=== PATIENT | male | born 1950 | race Caucasian/White ===

== ENCOUNTER 2017-11-26 08:23 | Outpatient (RCR) | payer MEDICARE, SELFPAY ==
[2017-11-26 08:45] VITALS: BP 145/80; PULSE 75; RESP 18; TEMP 36.9; BMI 32.5
--- NOTE | 2017-11-26 10:00 | PCM.WC.HP ---
(1) Ulcer of right lower extremity with fat layer exposed Status: Chronic Current Visit: Yes Code(s): L97.912 - Non-pressure chronic ulcer of unspecified part of right lower leg with fat layer exposed (2) Ulcer of left lower extremity with fat layer exposed Status: Chronic Current Visit: Yes Code(s): L97.922 - Non-pressure chronic ulcer of unspecified part of left lower leg with fat layer exposed (3) Venous insufficiency Status: Chronic Current Visit: Yes Code(s): I87.2 - Venous insufficiency (chronic) (peripheral) (4) Peripheral vascular disease Status: Chronic Current Visit: Yes Code(s): I73.9 - Peripheral vascular disease, unspecified (5) Lower extremity edema Status: Chronic Current Visit: Yes Code(s): R60.0 - Localized edema (6) Malnutrition Status: Suspected Current Visit: Yes Code(s): E46 - Unspecified protein-calorie malnutrition (7) Type 2 diabetes mellitus with diabetic polyneuropathy Status: Chronic Current Visit: Yes Code(s): E11.42 - Type 2 diabetes mellitus with diabetic polyneuropathy History of Present Illness Date of Service: 11/26/17 Chief Complaint: This 67-year-old male presents the wound care center for care of ulcers to both legs with an onset of over 3 years ago. He is in a skilled facility/psychiatric facility and is with an aide today. He sleeps in a chair. Previous cares include cream application wraps and bandages. He denies odor or redness. He is unable to care for the wounds on his own. He denies claudication. He does have some rest alterations in sensation. He denies recent trauma or injuries. He denies fever, chill, nausea. The wounds continue to weep with clear and yellowish drainage. 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 Medications: Amlodipine, aspirin, Ativan, Benadryl as needed, Blistex, bumetanide, disannex, Dilantin, Dulcolax, Glucerna, Imodium, Lantus pale, Lipitor, lisinopril, metoprolol, Mylanta, Risperdal, Synthroid, Tubersol, Tylenol needed, vitamin B12, metolazone. staff member who often provides care: Zora Aguilar at [facility] Smoking Status: Current every day smoker Review of Systems Constitutional: Denies: Chills, Fever Cardiovascular: Denies: Claudication Gastrointestinal: Denies: Nausea, Vomiting Musculoskeletal: Denies: Foot Pain, Leg Pain Skin: Reports: Rash, Wounds Neurological: Reports: Balance problems, Numbness - Physical Exam Vital Signs Temp Pulse Resp BP 98.4 F 75 18 145/80 H 11/26/17 08:45 11/26/17 08:45 11/26/17 08:45 11/26/17 08:45 General: Alert, Cooperative HEENT: Atraumatic Extremities: No cyanosis, Capillary Refill Less than 3 Seconds, No Calf Tenderness - Negative Charlene and Sloan bilateral, Diminished Peripheral Pulses, Edema Skin: Ulcer/ Wound - No purulence, no erythema, streaking, no odor, no necrosis, no eschar bilateral lower extremity. The wounds are fibrous with some hemorrhagic and granular. No crepitus on palpation, - - Skin is atrophic and hairless with some hemosiderin deposits Wound Measurements and Assessment ROSANA - Nurse 1 - General Ulcer Measurement Start: 11/26/17 08:42 Freq: Status: Active Protocol: Activity Type Activity Date Activity User E-Sign Co-Sign Detail Recorded Client Recorded Date Recorded By Document 11/26/17 08:45 PRESTON [id number] 11/26/17 08:58 PRESTON 11/26/17 08:45 Wound Center Nurse 1 [Ulcer Assessment Protocol: ROSANA.WD.LOC] 2-left leg cluster -Combined with other wound No -Current Size (cm) - Length 28.5 -Current Size (cm) - Width 29.0 -Current Size (cm) - Depth 0.1 -Total Square Cm 826.50 -Photo Taken Yes -Epithelialization None Present -Tunneling No -Undermining/Tunneling No -Circular Undermining No -Exudate Amt Medium (34-66%) -Exudate Type Serosanguineous -Wound Margin Flat & Intact -Granulation Amt None Present (0 %) -Slough/Fibrin Yes -Necrosis Amt Large (67-100%) -Necrotic Tissue Type Adherent Slough -Structure Exposed N/A -Texture (Rubia-wound Skin Appearance) Assessed Localized Edema -Moisture (Rubia-wound Skin Appearance Assessed ) Dry/Scaly -Color (Rubia-wound Skin Appearance) Assessed Hemosiderin Staining -Temperature (Rubia-wound Skin No Abnormality Appearance) (Pt Warm) -Tenderness on Palpation (Rubia-wound No Skin Appearance) -Ulcer Cleansing Wound Cleanser -Foul Odor after Cleansing No -Anesthetic Used 4% Lidocaine Solution 1-right leg cluster -Combined with other wound No -Current Size (cm) - Length 26.0 -Current Size (cm) - Width 37.0 -Current Size (cm) - Depth 0.1 -Total Square Cm 962.00 -Photo Taken Yes -Epithelialization None Present -Tunneling No -Undermining/Tunneling No -Circular Undermining No -Exudate Amt Medium (34-66%) -Exudate Type Serosanguineous -Wound Margin Flat & Intact -Granulation Amt None Present (0 %) -Slough/Fibrin Yes -Necrosis Amt Large (67-100%) -Necrotic Tissue Type Adherent Slough -Structure Exposed N/A -Texture (Rubia-wound Skin Appearance) Assessed Localized Edema -Moisture (Rubia-wound Skin Appearance Assessed ) Dry/Scaly -Color (Rubia-wound Skin Appearance) Assessed Hemosiderin Staining -Temperature (Rubia-wound Skin No Abnormality Appearance) (Pt Warm) -Tenderness on Palpation (Rubia-wound No Skin Appearance) -Ulcer Cleansing Wound Cleanser -Foul Odor after Cleansing No -Anesthetic Used 4% Lidocaine Solution [Edema Assessment] -Lower Limb Edema Present Yes -Right Calf (cm) 40.5 -Right Ankle (cm) 24.5 -Left Calf (cm) 39.2 -Left Ankle (cm) 25.2 WC - Nurse 2 - General Ulcer CM Notes Start: 11/26/17 08:42 Freq: Status: Active Protocol: Activity Type Activity Date Activity User E-Sign Co-Sign Detail Recorded Client Recorded Date Recorded By Document 11/26/17 09:14 [id number] 11/26/17 09:38 11/26/17 09:14 Wound Center Nurse 2 [Procedure/Treatment] 2-left leg cluster -Time 09:14 -Correct Patient Yes -Correct Side, Site, Position Yes -Correct Procedure Yes -Procedure Performed Yes -Type of Procedure Debridement -Clinical Debridement Subcutaneous -Post Debridement Size (cm) - Length 28.6 -Post Debridement Size (cm) - Width 29.1 -Post Debridement Size (cm) - Depth 0.1 -Total Square Cm 832.26 -Wound/Ulcer Outcome Not Healed -Ulcer Cleansing Rinsed/ Irrigated with Saline -Foul Odor after Cleansing No -Bioengineered Tissue No -Topical Lidocaine (%) 4 -Bleeding Controlled with Pressure -Treatment Response Procedure Tolerated Well 1-right leg cluster -Time 09:14 -Correct Patient Yes -Correct Side, Site, Position Yes -Correct Procedure Yes -Procedure Performed Yes -Type of Procedure Debridement -Clinical Debridement Subcutaneous -Post Debridement Size (cm) - Length 26.1 -Post Debridement Size (cm) - Width 37.1 -Post Debridement Size (cm) - Depth 0.1 -Total Square Cm 968.31 -Wound/Ulcer Outcome Not Healed -Ulcer Cleansing Rinsed/ Irrigated with Saline -Foul Odor after Cleansing No -Bioengineered Tissue No -Topical Lidocaine (%) 4 -Bleeding Controlled with Pressure -Treatment Response Procedure Tolerated Well [See Physician Procedure note for Specifics] Pain Scale: 0-10 Numeric [Pain] -Is Patient Pain Free? Yes Musculoskeletal: No Tenderness to Palpation of Joints or Extremities, Muscle Wasting, - - Compartments remain soft bilateral lower extremities. 5 out of 5 ankle muscle strength in all directions and active range of motion digits bilateral Neurological: - - Epicritic sensation is intact to light touch and 2 monocytes with a 10 g Odom Chauncey monofilament Psych/Mental Status: Normal Affect, Appropriate Debridement Note Post-Debridement Measurements/Treatment WC - Nurse 2 - General Ulcer CM Notes Start: 11/26/17 08:42 Freq: Status: Active Protocol: Activity Type Activity Date Activity User E-Sign Co-Sign Detail Recorded Client Recorded Date Recorded By Document 11/26/17 09:14 [id number] 11/26/17 09:38 11/26/17 09:14 Wound Center Nurse 2 2-left leg cluster -Time 09:14 -Correct Patient Yes -Correct Side, Site, Position Yes -Correct Procedure Yes -Procedure Performed Yes -Type of Procedure Debridement -Clinical Debridement Subcutaneous -Post Debridement Size (cm) - Length 28.6 -Post Debridement Size (cm) - Width 29.1 -Post Debridement Size (cm) - Depth 0.1 -Total Square Cm 832.26 -Wound/Ulcer Outcome Not Healed -Ulcer Cleansing Rinsed/ Irrigated with Saline -Foul Odor after Cleansing No -Bioengineered Tissue No -Topical Lidocaine (%) 4 -Bleeding Controlled with Pressure -Treatment Response Procedure Tolerated Well 1-right leg cluster -Time 09:14 -Correct Patient Yes -Correct Side, Site, Position Yes -Correct Procedure Yes -Procedure Performed Yes -Type of Procedure Debridement -Clinical Debridement Subcutaneous -Post Debridement Size (cm) - Length 26.1 -Post Debridement Size (cm) - Width 37.1 -Post Debridement Size (cm) - Depth 0.1 -Total Square Cm 968.31 -Wound/Ulcer Outcome Not Healed -Ulcer Cleansing Rinsed/ Irrigated with Saline -Foul Odor after Cleansing No -Bioengineered Tissue No -Topical Lidocaine (%) 4 -Bleeding Controlled with Pressure -Treatment Response Procedure Tolerated Well Pain Scale: 0-10 Numeric Is Patient Pain Free? Yes Wound debrided: leg Laterality: Right Wound Grade/Stage: grade 1 Type of Debridement: Excisional debridement Anesthesia Used: 4% Lidocaine Solution Depth: in the subcutaneous layer Percentage of wound debrided: 100 Instrument Used: #15 blade Tissue Removed: Fibrous, devitalized subcutaneous, biofilm, slough Severity: Limited To Skin Breakdown Amount of bleeding with debridement: Mild Bleeding Controlled with: Pressure Patient tolerated procedure well - Additional Wound Wound debrided: leg Laterality: Left Wound Grade/Stage: Grade 1 Type of Debridement: Excisional debridement Anesthesia Used: 4% Lidocaine Solution Depth: in the subcutaneous layer Percentage of wound debrided: 100 Instrument Used: #15 blade Tissue Removed: Fibrous, devitalized subcutaneous, biofilm, slough Severity: Limited To Skin Breakdown Amount of bleeding with debridement: Mild Bleeding Controlled with: Pressure Patient tolerated procedure: Patient tolerated procedure well Assessment/Plan Active Problems Ulcer of right lower extremity with fat layer exposed (Chronic) Ulcer of left lower extremity with fat layer exposed (Chronic) Venous insufficiency (Chronic) Peripheral vascular disease (Chronic) Lower extremity edema (Chronic) Type 2 diabetes mellitus with diabetic polyneuropathy (Chronic) Assessment: Bilateral leg ulcers. Lower extremity edema bilateral. Rule out venous insufficiency. Peripheral vascular disease rule out. Malnutrition suspected. Poor hygiene Plan: I reviewed and discussed his case and reviewed his diagnostic data which there is lacking. Debridement was performed as noted in the clinical nursing panel. To change dressing daily with hydrogel and Adaptic and Tubigrip for compression. Venous Doppler with reflux exam and noninvasive arterial studies were ordered to assess for venous and arterial capabilities. Additional compression will be considered pending these results. Lab tests including hemoglobin A1c, CBC, CMP were ordered and results are pending. He was reassured there is no local signs of infection. To moisturize adjacent dry skin with Eucerin or Lac-Hydrin. To elevate legs at rest and to avoid idle sitting or standing. To take nutritional supplementation to optimize healing; a prescription for Gustavo was provided. To control glucose levels to optimize healing. I explained the necessary factors needed for wound healing. I answered all of his questions. To return to clinic in 1 week or call sooner if problems.
--- NOTE | 2017-11-26 10:03 | HP.PCM_ITS ---
(1) Ulcer of right lower extremity with fat layer exposed Status: Chronic Current Visit: Yes Code(s): L97.912 - Non-pressure chronic ulcer of unspecified part of right lower leg with fat layer exposed (2) Ulcer of left lower extremity with fat layer exposed Status: Chronic Current Visit: Yes Code(s): L97.922 - Non-pressure chronic ulcer of unspecified part of left lower leg with fat layer exposed (3) Venous insufficiency Status: Chronic Current Visit: Yes Code(s): I87.2 - Venous insufficiency ( chronic) (peripheral) (4) Peripheral vascular disease Status: Chronic Current Visit: Yes Code(s): I73.9 - Peripheral vascular disease, unspecified (5) Lower extremity edema Status: Chronic Current Visit: Yes Code(s): R60.0 - Localized edema (6) Malnutrition Status: Suspected Current Visit: Yes Code(s): E46 - Unspecified protein- calorie malnutrition (7) Type 2 diabetes mellitus with diabetic polyneuropathy Status: Chronic Current Visit: Yes Code(s): E11.42 - Type 2 diabetes mellitus with diabetic polyneuropathy History of Present Illness Date of Service: 11/26/17 Chief Complaint: This 67-year-old male presents the wound care center for care of ulcers to both legs with an onset of over 3 years ago. He is in a skilled facility/psychiatric facility and is with an aide today. He sleeps in a chair. Previous cares include cream application wraps and bandages. He denies odor or redness. He is unable to care for the wounds on his own. He denies claudication. He does have some rest alterations in sensation. He denies recent trauma or injuries. He denies fever, chill, nausea. The wounds continue to weep with clear and yellowish drainage. 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 Medications: Amlodipine, aspirin, Ativan, Benadryl as needed , Blistex, bumetanide, disannex, Dilantin, Dulcolax, Glucerna, Imodium, Lantus pale, Lipitor, lisinopril, metoprolol, Mylanta, Risperdal, Synthroid, Tubersol, Tylenol needed, vitamin B12, metolazone. staff member who often provides care: Zora Aguilar at [facility] Smoking Status: Current every day smoker Review of Systems Constitutional: Denies: Chills, Fever Cardiovascular: Denies: Claudication Gastrointestinal: Denies: Nausea, Vomiting Musculoskeletal: Denies: Foot Pain, Leg Pain Skin: Reports: Rash, Wounds Neurological: Reports: Balance problems, Numbness - Physical Exam Vital Signs Temp Pulse Resp BP 98.4 F 75 18 145/80 H 11/26/17 08:45 11/26/17 08:45 11/26/17 08:45 11/26/17 08:45 General: Alert, Cooperative HEENT: Atraumatic Extremities: No cyanosis, Capillary Refill Less than 3 Seconds, No Calf Tenderness - Negative Charlene and Sloan bilateral, Diminished Peripheral Pulses, Edema Skin: Ulcer/ Wound - No purulence, no erythema, streaking, no odor, no necrosis , no eschar bilateral lower extremity. The wounds are fibrous with some hemorrhagic and granular. No crepitus on palpation, - - Skin is atrophic and hairless with some hemosiderin deposits Wound Measurements and Assessment ROSANA - Nurse 1 - General Ulcer Measurement Start: 11/26/17 08:42 Freq: Status: Active Protocol: Activity Type Activity Date Activity User E-Sign Co-Sign Detail Recorded Client Recorded Date Recorded By Document 11/26/17 08:45 PRESTON [id number] 11/26/17 08:58 PRESTON 11/26/17 08:45 Wound Center Nurse 1 [Ulcer Assessment Protocol: ROSANA.WD.LOC] 2-left leg cluster -Combined with other wound No -Current Size (cm) - Length 28.5 -Current Size (cm) - Width 29.0 -Current Size (cm) - Depth 0.1 -Total Square Cm 826.50 -Photo Taken Yes -Epithelialization None Present -Tunneling No -Undermining/Tunneling No -Circular Undermining No -Exudate Amt Medium (34-66%) -Exudate Type Serosanguineous -Wound Margin Flat & Intact -Granulation Amt None Present (0 %) -Slough/Fibrin Yes -Necrosis Amt Large (67-100%) -Necrotic Tissue Type Adherent Slough -Structure Exposed N/A -Texture (Rubia-wound Skin Appearance) Assessed Localized Edema -Moisture (Rubia-wound Skin Appearance Assessed ) Dry/Scaly -Color (Rubia-wound Skin Appearance) Assessed Hemosiderin Staining -Temperature (Rubia-wound Skin No Abnormality Appearance) (Pt Warm) -Tenderness on Palpation (Rubia-wound No Skin Appearance) -Ulcer Cleansing Wound Cleanser -Foul Odor after Cleansing No -Anesthetic Used 4% Lidocaine Solution 1-right leg cluster -Combined with other wound No -Current Size (cm) - Length 26.0 -Current Size (cm) - Width 37.0 -Current Size (cm) - Depth 0.1 -Total Square Cm 962.00 -Photo Taken Yes -Epithelialization None Present -Tunneling No -Undermining/Tunneling No -Circular Undermining No -Exudate Amt Medium (34-66%) -Exudate Type Serosanguineous -Wound Margin Flat & Intact -Granulation Amt None Present (0 %) -Slough/Fibrin Yes -Necrosis Amt Large (67-100%) -Necrotic Tissue Type Adherent Slough -Structure Exposed N/A -Texture (Rubia-wound Skin Appearance) Assessed Localized Edema -Moisture (Rubia-wound Skin Appearance Assessed ) Dry/Scaly -Color (Rubia-wound Skin Appearance) Assessed Hemosiderin Staining -Temperature (Rubia-wound Skin No Abnormality Appearance) (Pt Warm) -Tenderness on Palpation (Rubia-wound No Skin Appearance) -Ulcer Cleansing Wound Cleanser -Foul Odor after Cleansing No -Anesthetic Used 4% Lidocaine Solution [Edema Assessment] -Lower Limb Edema Present Yes -Right Calf (cm) 40.5 -Right Ankle (cm) 24.5 -Left Calf (cm) 39.2 -Left Ankle (cm) 25.2 WC - Nurse 2 - General Ulcer CM Notes Start: 11/26/17 08:42 Freq: Status: Active Protocol: Activity Type Activity Date Activity User E-Sign Co-Sign Detail Recorded Client Recorded Date Recorded By Document 11/26/17 09:14 [id number] 11/26/17 09:38 11/26/17 09:14 Wound Center Nurse 2 [Procedure/Treatment] 2-left leg cluster -Time 09:14 -Correct Patient Yes -Correct Side, Site, Position Yes -Correct Procedure Yes -Procedure Performed Yes -Type of Procedure Debridement -Clinical Debridement Subcutaneous -Post Debridement Size (cm) - Length 28.6 -Post Debridement Size (cm) - Width 29.1 -Post Debridement Size (cm) - Depth 0.1 -Total Square Cm 832.26 -Wound/Ulcer Outcome Not Healed -Ulcer Cleansing Rinsed/ Irrigated with Saline -Foul Odor after Cleansing No -Bioengineered Tissue No -Topical Lidocaine (%) 4 -Bleeding Controlled with Pressure -Treatment Response Procedure Tolerated Well 1-right leg cluster -Time 09:14 -Correct Patient Yes -Correct Side, Site, Position Yes -Correct Procedure Yes -Procedure Performed Yes -Type of Procedure Debridement -Clinical Debridement Subcutaneous -Post Debridement Size (cm) - Length 26.1 -Post Debridement Size (cm) - Width 37.1 -Post Debridement Size (cm) - Depth 0.1 -Total Square Cm 968.31 -Wound/Ulcer Outcome Not Healed -Ulcer Cleansing Rinsed/ Irrigated with Saline -Foul Odor after Cleansing No -Bioengineered Tissue No -Topical Lidocaine (%) 4 -Bleeding Controlled with Pressure -Treatment Response Procedure Tolerated Well [See Physician Procedure note for Specifics] Pain Scale: 0-10 Numeric [Pain] -Is Patient Pain Free? Yes Musculoskeletal: No Tenderness to Palpation of Joints or Extremities, Muscle Wasting, - - Compartments remain soft bilateral lower extremities. 5 out of 5 ankle muscle strength in all directions and active range of motion digits bilateral Neurological: - - Epicritic sensation is intact to light touch and 2 monocytes with a 10 g Odom Chauncey monofilament Psych/Mental Status: Normal Affect, Appropriate Debridement Note Post-Debridement Measurements/Treatment WC - Nurse 2 - General Ulcer CM Notes Start: 11/26/17 08:42 Freq: Status: Active Protocol: Activity Type Activity Date Activity User E-Sign Co-Sign Detail Recorded Client Recorded Date Recorded By Document 11/26/17 09:14 [id number] 11/26/17 09:38 11/26/17 09:14 Wound Center Nurse 2 2-left leg cluster -Time 09:14 -Correct Patient Yes -Correct Side, Site, Position Yes -Correct Procedure Yes -Procedure Performed Yes -Type of Procedure Debridement -Clinical Debridement Subcutaneous -Post Debridement Size (cm) - Length 28.6 -Post Debridement Size (cm) - Width 29.1 -Post Debridement Size (cm) - Depth 0.1 -Total Square Cm 832.26 -Wound/Ulcer Outcome Not Healed -Ulcer Cleansing Rinsed/ Irrigated with Saline -Foul Odor after Cleansing No -Bioengineered Tissue No -Topical Lidocaine (%) 4 -Bleeding Controlled with Pressure -Treatment Response Procedure Tolerated Well 1-right leg cluster -Time 09:14 -Correct Patient Yes -Correct Side, Site, Position Yes -Correct Procedure Yes -Procedure Performed Yes -Type of Procedure Debridement -Clinical Debridement Subcutaneous -Post Debridement Size (cm) - Length 26.1 -Post Debridement Size (cm) - Width 37.1 -Post Debridement Size (cm) - Depth 0.1 -Total Square Cm 968.31 -Wound/Ulcer Outcome Not Healed -Ulcer Cleansing Rinsed/ Irrigated with Saline -Foul Odor after Cleansing No -Bioengineered Tissue No -Topical Lidocaine (%) 4 -Bleeding Controlled with Pressure -Treatment Response Procedure Tolerated Well Pain Scale: 0-10 Numeric Is Patient Pain Free? Yes Wound debrided: leg Laterality: Right Wound Grade/Stage: grade 1 Type of Debridement: Excisional debridement Anesthesia Used: 4% Lidocaine Solution Depth: in the subcutaneous layer Percentage of wound debrided: 100 Instrument Used: #15 blade Tissue Removed: Fibrous, devitalized subcutaneous, biofilm, slough Severity: Limited To Skin Breakdown Amount of bleeding with debridement: Mild Bleeding Controlled with: Pressure Patient tolerated procedure well - Additional Wound Wound debrided: leg Laterality: Left Wound Grade/Stage: Grade 1 Type of Debridement: Excisional debridement Anesthesia Used: 4% Lidocaine Solution Depth: in the subcutaneous layer Percentage of wound debrided: 100 Instrument Used: #15 blade Tissue Removed: Fibrous, devitalized subcutaneous, biofilm, slough Severity: Limited To Skin Breakdown Amount of bleeding with debridement: Mild Bleeding Controlled with: Pressure Patient tolerated procedure: Patient tolerated procedure well Assessment/Plan Active Problems Ulcer of right lower extremity with fat layer exposed (Chronic) Ulcer of left lower extremity with fat layer exposed (Chronic) Venous insufficiency (Chronic) Peripheral vascular disease (Chronic) Lower extremity edema (Chronic) Type 2 diabetes mellitus with diabetic polyneuropathy (Chronic) Assessment: Bilateral leg ulcers. Lower extremity edema bilateral. Rule out venous insufficiency. Peripheral vascular disease rule out. Malnutrition suspected. Poor hygiene Plan: I reviewed and discussed his case and reviewed his diagnostic data which there is lacking. Debridement was performed as noted in the clinical nursing panel. To change dressing daily with hydrogel and Adaptic and Tubigrip for compression. Venous Doppler with reflux exam and noninvasive arterial studies were ordered to assess for venous and arterial capabilities. Additional compression will be considered pending these results. Lab tests including hemoglobin A1c, CBC, CMP were ordered and results are pending. He was reassured there is no local signs of infection. To moisturize adjacent dry skin with Eucerin or Lac-Hydrin. To elevate legs at rest and to avoid idle sitting or standing. To take nutritional supplementation to optimize healing; a prescription for Gustavo was provided. To control glucose levels to optimize healing. I explained the necessary factors needed for wound healing. I answered all of his questions. To return to clinic in 1 week or call sooner if problems.
== END 2017-12-10 23:59 ==
LOC: WC 08:23
PROVIDERS: Family Provider Family Medicine; PCP Family Medicine; Visit Provider Podiatrist
DX: E11.622 Type 2 diabetes mellitus with other skin ulcer (principal); E11.51 Type 2 diabetes mellitus with diabetic peripheral angiopathy without gangrene; E11.42 Type 2 diabetes mellitus with diabetic polyneuropathy; R60.0 Localized edema; L97.821 Non-pressure chronic ulcer of other part of left lower leg limited to breakdown of skin; L97.811 Non-pressure chronic ulcer of other part of right lower leg limited to breakdown of skin; J44.9 Chronic obstructive pulmonary disease, unspecified; I10 Essential (primary) hypertension
CPT/HCPCS: 11042; 99203; G0463

== ENCOUNTER 2020-03-05 23:37 | Inpatient (IN) | payer MEDICARE, MEDICAID, SELFPAY ==
[2020-03-05 23:39] VITALS: BP 137/60; PULSE 109; RESP 24; TEMP 38.8; O2SAT 94
[2020-03-06] VITALS (11 sets, daily range): BP systolic 93–121; BP diastolic 50–63; PULSE 70–103; RESP 14–24; TEMP 36.7–39.4; O2SAT 92–97; BMI 29.7; BMI 29.8
--- NOTE | 2020-03-06 00:06 | EKG12_ITS ---
Test Reason : FEVER Blood Pressure : / mmHG Vent. Rate : 102 BPM Atrial Rate : 102 BPM P-R Int : 192 ms QRS Dur : 084 ms QT Int : 334 ms P-R-T Axes : 050 012 054 degrees QTc Int : 435 ms Sinus tachycardia Otherwise normal ECG Confirmed by SANTY ROMERO MD ([id number]), food editor MAX GLOVER ([id number]) on 03/07/2020 3:22:32 PM Referred By: MARVA Confirmed By:SANTY ROMERO MD
--- NOTE | 2020-03-06 00:06 | RAD_ITS ---
STUDY: X-RAY CHEST REASON FOR EXAM: Male, 69 years old. FEVER, ALTERED LOC TECHNIQUE: Frontal view COMPARISON: None. FINDINGS: Lungs are expanded. There are mild fibrotic changes. There are NO acute infiltrates. There is no demonstrated pleural abnormality. Normal size heart. Normal mediastinum and rosalinda. Normal visualized pulmonary arteries. Normal visualized aortic arch and descending thoracic aorta. Normal visualized thoracic spine. Normal visualized ribs, clavicles, and shoulders. There is no demonstrated abnormality of the visualized soft tissue structures of the upper abdomen. RAD/Chest 1 View (Portable) IMPRESSION: Lungs are expanded. There are mild fibrotic changes. There are NO acute infiltrates. There is no demonstrated pleural abnormality. Normal size heart. Electronically Signed: Cam Pitts MD at 1:52 EDT , Service support ,
--- NOTE | 2020-03-06 00:09 | ED.VISSUMM ---
- ER Visit Summary Date of Service: 03/06/20 Chief Complaint: Fever and decreased mental status from the long term History of Present Illness: The patient is a 69 M history of dementia, diabetes, schizophrenia, hyponatremia, anemia and hypertension. Patient is unable to give any history. Per long term staff he had a fever all day to be treated with Tylenol. He was started on the antibiotic Keflex. And has had a worsening mental status. No reported vomiting, diarrhea or significant cough. Physical Examination: Elderly male clinically looks dehydrated and most likely septic. Fever of 102. Initial blood pressure 137/60. Pulse ox 94% on room air no hypoxia. HEENT exam atraumatic. Pupils are round reactive light. Dry mucous members. Neck nontender no lymphadenopathy. Lungs clear to auscultation bilaterally but diminished bilaterally. Shallow respirations. Heart tachycardic rate about 110 no murmur. Chest were nontender. Abdomen soft nontender normal bowel sounds no peritoneal signs. Well-healed old prior lower abdominal midline incision. Extremities moves all 4. Is got redness of his left lower leg. But is not warm to touch. No deformity. No significant edema. Neurologically he is awake he follows limited commands. He gives no history. He is generally weak. There is reportedly a breakdown the skin by his buttock scrotal area. Nurses and I rolled the patient is back there is no decubitus ulcers no breakdown of the skin. His right proximal hamstring is slightly red. There is no obvious abscess. No necrotizing fasciitis. His external exam is unremarkable. Test Results: Chest x-ray portable 1 view read by myself and the radiologist shows no acute abnormality. EKG shows a sinus tachycardia rate of 102 no acute signs of ischemia. CBC shows an elevated white count of 13.8. Hemoglobin of 12. No bands. Chemistry shows sodium 129. Gap of 5. Glucose of 239. BUN of 36 creatinine 1.6 consistent with dehydration. Liver enzymes are normal. PT PTT unremarkable. Urine shows 25-50 white cells 10-25 red cells rare bacteria. No nitrites culture sent lactate 1.6. Emergency Department Course and Treatment: Patient be treated with IV fluids and rectal Tylenol. Will undergo a septic work-up and need to be admitted. He will be treated with parenteral IV antibiotics prior to admission. Treatment Plan: [] Disposition: Admission Impression: Acute fever Acute sepsis Acute mental status change Acute dehydration History of dementia History of diabetes This note was generated with [employer] dictation software. It may contain incorrect words, spelling, and punctuation that were not noted in review of the chart prior to signing ED Disposition - Plan for ED Patient: Referrals: Pipo Moya MD [Primary Care Provider] -
[2020-03-06] MEDS: 0.9% Normal Saline 1,000 ML 999 ML IV ×2 (00:15→04:10)
[2020-03-06 00:22] LABS: Absolute Lymphocyte Count 0.25 X10^3/uL (0.83-4.51); Absolute Neutrophil Count 12.3 X10^3/uL (2.0-7.7); Basophil# 0.02 X10^3/uL; Basophil% 0.1 % (0-1); Eosinophil# 0.11 X10^3/uL; Eosinophils% 0.8 % (0-5); Hematocrit 36.8 % (40-54); Hemoglobin 12.2 g/dL (13.0-16.5); Lymphocyte # 0.25 X10^3/ul (4.0); Lymphocyte % 1.8 % (19-41); Mean Corp Hgb Conc 33.2 g/dL (32-36); Mean Corpuscular Hgb 30.7 pg (27.0-32.0); Mean Corpuscular Volume 92.7 fL (80-94); Mean Platelet Vol. 10.6 fl (6.2-12.0); Monocyte# 1.05 X10^3/uL; Monocyte% 7.6 % (0-10); NRBC Flagged by Analyzer 0 % (0-5); Neutrophil # 12.29 X10^3/uL (2.7-7.7); POSITIVE DIFFERENTIAL YES; POSITIVE MORPHOLOGY YES; Platelet Count 153 K/mm3 (150-450); RBC Distribution Width CV 12.7 % (11.6-14.6); RBC Distribution Width SD 43.2 fl (35.1-43.9); Red Blood Count 3.97 M/mm3 (4.6-6.2); White Blood Count 13.8 K/mm3 (4.4-11.0)
[2020-03-06 00:25] LABS: Differential Indicated SCAN CRITERIA MET
[2020-03-06 00:28] LABS: International Normalized Ratio 1.3; Partial Thromboplast Time 28.8 Seconds (24.1-36.2); Prothrombin Time (Protime)PT. 15.8 SECONDS (11.7-14.9)
[2020-03-06 00:37] LABS: ALB/GLOB Ratio 0.7 RATIO (0.9-2.4); AST(SGOT) 59 U/L (15-37); Alanine Aminotransfer ALT/SGPT 26 U/L (16-61); Albumin, Serum 2.8 g/dL (3.2-5.0); Alkaline Phosphatase 80 U/L (45-117); Anion Gap 5 (5-15); BUN 36 mg/dL (7-18); BUN/Creat Ratio 22.5 RATIO (10-20); Calcium,Total 8.3 mg/dL (8.5-10.1); Chloride 94 mmol/L (98-107); EST Glomerular Filtration Rate 46 mL/min (>60); Est Glom Filt Rate - Afr Amer 55 mL/min (>60); Estimated Creatinine Clearance 44.36 ml/min; Globulin 3.8 g/dL (2.2-4.2); Glucose 234 mg/dL (74-106); Lactic Acid 1.6 mmol/L (0.4-1.9); Potassium 4.1 mmol/L (3.5-5.1); Protein, Total 6.6 g/dL (6.4-8.2); Sodium Level 129 mmol/L (136-145)
[2020-03-06 01:34] LABS: Differential Comment SCANNED
[2020-03-06] MEDS: Acetaminophen 120 MG Suppository RECTAL (01:35)
[2020-03-06 01:36] LABS: Mucous, Urine 0 SEEN /hpf (<or=2+); Squamous Epithelial Cells - UA 0 SEEN /hpf (0-5)
[2020-03-06 01:37] LABS: Color, Urine Yellow (Yellow); Glucose, Dipstick Normal (Normal); Ketone-Dipstick 5 mg/dl (Negative); Leukocyte Esterase-Dipstick 500 /ul (Negative); Nitrite-Dipstick Negative (Negative); Occult Blood-Urine 150 /ul (Negative); Protein-Dipstick 100 mg/dl (Negative); Specific Gravity, Urine 1.015 (1.002-1.030); Urine Clarity Cloudy (Clear); Urine Urobilinogen 1 mg/dl (Normal)
[2020-03-06 01:43] LABS: Urine Bilirubin Dipstick 1 mg/dL (Negative)
[2020-03-06 01:44] LABS: Bacteria RARE /hpf (None Seen); Red Blood Cells-Urine 10-25 SEEN /hpf (0-5); White Blood Cells 25-50 SEEN /hpf (0-5)
--- NOTE | 2020-03-06 03:22 | HP.PCM_ITS ---
Problem List (1) Septic shock Status: Acute (2) Ulcer of right lower extremity with fat layer exposed Status: Chronic (3) Ulcer of left lower extremity with fat layer exposed Status: Chronic (4) Venous insufficiency Status: Chronic (5) Peripheral vascular disease Status: Chronic (6) Lower extremity edema Status: Chronic (7) Type 2 diabetes mellitus with diabetic polyneuropathy Status: Chronic History of Present Illness Date of Admission: 03/06/20 Chief Complaint: FEVER The patient is a 69 year old M with a significant history of dementia, diabetes, hypertension, paranoid schizophrenia; colon cancer status post partial colectomy and who lives in a halfway presenting with a fever. Reportedly he had fever all day on the day of presentation and he was treated with Tylenol. Reportedly recently he was started on Keflex for cellulitis of the thigh. At emergent department patient was found to have a fever with Tmax of 103F; he was hypotensive and he had leukocytosis as well as abnormal urinalysis. He was given Zosyn at the ED and 2 liters of IVF was ordered. Past Medical History Past Medical History (Chronic Problems): Chronic Problems Ulcer of right lower extremity with fat layer exposed (Chronic) Ulcer of left lower extremity with fat layer exposed (Chronic) Venous insufficiency (Chronic) Peripheral vascular disease (Chronic) Lower extremity edema (Chronic) Type 2 diabetes mellitus with diabetic polyneuropathy (Chronic) Allergies egg Allergy (Verified 03/06/20 00:22) PT UNABLE TO RESPOND-NEEDS F/U Home Medications: Ambulatory Orders Medication Instructions Recorded Acetaminophen 325 mg PO Q4H PRN PRN 03/06/20 Amlodipine [Norvasc] 2.5 mg PO DAILY 03/06/20 Aspirin 81 mg PO DAILY 03/06/20 Atorvastatin Calcium [Lipitor] 40 mg PO DAILY 03/06/20 Bumetanide [Bumex] 0.5 mg PO DAILY 03/06/20 Cephalexin [Keflex] 500 mg PO TID 03/06/20 Cyanocobalamin (Vitamin B-12) 2,000 mcg PO DAILY 03/06/20 [Vitamin B12] Lamotrigine 100 mg PO BID 03/06/20 Levothyroxine [Synthroid] 125 mcg PO DAILY 03/06/20 Lisinopril [Prinivil] 10 mg PO BID 03/06/20 Lorazepam [Ativan] 2 mg PO BID 03/06/20 Magnesium Hydroxide [Milk of 30 ml PO DAILY 03/06/20 Magnesia] Metolazone [Zaroxolyn] 2.5 mg PO DAILY 03/06/20 Metoprolol Succinate 50 mg PO DAILY 03/06/20 Phenytoin Na [Dilantin] 125 mg PO DAILY 03/06/20 Prednisone 20 mg PO DAILY 03/06/20 Risperidone Microspheres 50 mg IM X1 03/06/20 [Risperdal Consta] Senna [Senokot] 1 tab PO DAILY 03/06/20 Trihexyphenidyl HCl 2 mg PO BID 03/06/20 Surgical History: - - Colon cancer status post partial colectomy Lives: Prison Smoking Status: Unknown if ever smoked - *Family History Maternal History Items: - - Patient is encephalopathic and family history cannot be obtained Paternal History Items: - - Patient is encephalopathic and family history cannot be obtained Review of Systems Unable to obtain accurate/complete ROS d/t: Encephalopathy. ROS obtained from ED doctor as in HPI VTE Information - Inpt Only VTE Present on Admission: No VTE Mechan Device Prophylaxis: None VTE Pharm Prophylaxis ordered?: Yes Patient Problems: Active and Suspected Problems Septic shock (Acute) - Physical Exam Vitals/I&O's: Vital Signs Temp Pulse Resp BP Pulse Ox 102 F H 96 17 101/53 L 92 03/06/20 03:09 03/06/20 03:09 03/06/20 03:09 03/06/20 03:09 03/06/20 03:09 Oxygen Delivery Method Room Air Weight: 95.1 kg Body Mass Index (BMI) 30.0 Intake and Output for Last 24 Hours 03/04/20 03/05/20 03/06/20 23:59 23:59 23:59 Intake Total 1000 / 1000 Balance 1000 / 1000 General: Lethargic HEENT: Atraumatic, Normocephalic, - - Pinpoint pupils protruding eyeballs Neck: Supple, Trachea Midline Lungs: Normal air movement, No rhonchi, No wheeze, No rales, Tachypneic Cardiovascular: Normal S1, Normal S2, No murmurs, Tachycardic Abdomen: Bowel Sounds Present, Soft, Non Tender Extremities: No edema, Capillary Refill Less than 3 Seconds, - - Erythema of right hamstrings. Erythema of bilateral legs. Redness and excoriation of left calf. Skin: Excoriated - Left calf Musculoskeletal: No Tenderness to Palpation of Joints or Extremities Neurological: - - Lethargic; not following commands. Psych/Mental Status: Flat Affect, - - Masked face Laboratory Results 03/05/20 23:55: WBC 13.8 H, RBC 3.97 L, Hgb 12.2 L, Hct 36.8 L, MCV 92.7, MCH 30.7, MCHC 33.2, RDW Std Deviation 43.2, RDW Coeff of Kristie 12.7, Plt Count 153, MPV 10.6, Immature Gran % (Auto) 0.700, Neut % (Auto) 89.0 H, Lymph % (Auto) 1.8 L, [place] % (Auto) 7.6, Eos % (Auto) 0.8, Baso % (Auto) 0.1, Absolute Neuts (auto) 12.3 H, Absolute Lymphs (auto) 0.25 L, Nucleated RBC % 0, Differential Comment SCANNED 03/05/20 23:55: PT 15.8 H, INR 1.3, APTT 28.8 03/05/20 23:55: Sodium 129 L, Potassium 4.1, Chloride 94 L, Carbon Dioxide 30.0, Anion Gap 5, BUN 36 H, Creatinine 1.60 H, Estim Creat Clear Calc 44.36, Est GFR (MDRD) Af Amer 55 L, Est GFR (MDRD) Non-Af 46 L, BUN/Creatinine Ratio 22.5 H, Glucose 234 H, Calcium 8.3 L, Total Bilirubin 0.90, AST 59 H, ALT 26, Alkaline Phosphatase 80, Total Protein 6.6, Albumin 2.8 L, Globulin 3.8, Albumin/Globulin Ratio 0.7 L 03/05/20 23:55: Lactic Acid 1.6 03/06/20 01:15: Urine Color Yellow, Urine Clarity Cloudy, Urine pH 6.0, Ur Specific [place] 1.015, Urine Protein 100 H, Urine Glucose (UA) Normal, Urine Ketones 5 H, Urine Occult Blood 150 H, Urine Nitrite Negative, Urine Bilirubin 1 H, Urine Urobilinogen 1 H, Ur Leukocyte Esterase 500 H, Urine RBC 10-25 SEEN, Urine WBC 25-50 SEEN, Ur Squamous Epith Cells 0 SEEN, Urine Bacteria RARE, Urine Mucus 0 SEEN Assessment/Plan All Active Problems Septic shock (Acute) The patient is a 69 year old M with a significant history of dementia, diabetes, hypertension, paranoid schizophrenia, colon cancer status post partial colectomy and who lives in a halfway presenting with a fever; and has some mild redness of right hamstrings; and mild redness of excoriated left calf and abnormal urinalysis who was found to have tachypnea; leukocytosis and hypotension consistent with septic shock Septic shock While in patient's room map was 58. His redness of right hamstring and excoriated left calf is not that impressive. However patient was on p.o. antibiotics before presentation. For now we will assume that the source of possible infection is likely cellulitis and UTI. Was given Zosyn at emergency department. Continue Zosyn. Add vancomycin. Lactic acid was unremarkable. Patient is a DNR CC will admit to PCU. Trend CBC. Patient appears lethargic. Hold all p.o. medications and make patient n.p.o. His supposed lethargy could also be from catatonia secondary to schizophrenia Discussed with emergent department doctor to get a covid screen Give additional 1 L normal saline to make a total of 30 ML per kilogram bolus of normal saline. Blood culture x2 was obtained emergency department; follow. On outpatient steroids. Will start patient on hydrocortisone IV. ROEL His creatinine presentation was 1.60. No previous creatinine to compare with. BUN is 36. BUN over creatinine is 22.5. Likely prerenal from dehydration and intrinsic renal from septic shock. However this could also be CKD. Diabetes mellitus with polyneuropathy. Patient with hyperglycemia on presentation Check A1c Accu-Chek every 6 hours with correction scale insulin. N.p.o. since patient is lethargic. DVT prophylaxis Subcutaneous Lovenox. Paranoid schizophrenia Complicates care. Miscellaneous: Patient was not sent to the ICU because patient is a DNR CC.
--- NOTE | 2020-03-06 04:06 | SEPSISNOTE ---
Sepsis Note - Physical Exam/Vitals Objective: Chest X-Ray 03/06/20 00:06 IMPRESSION: Lungs are expanded. There are mild fibrotic changes. There are NO acute infiltrates. There is no demonstrated pleural abnormality. Normal size heart. Electronically Signed: Cam Pitts MD at 1:52 EDT , Service support , Temp Pulse Resp BP Pulse Ox 102 F H 96 17 101/53 L 92 03/06/20 03:09 03/06/20 03:09 03/06/20 03:09 03/06/20 03:09 03/06/20 03:09 03/06/20 03/05/20 03/05/20 01:15 23:55 23:55 WBC RBC Hgb Hct MCV MCH MCHC RDW Std Deviation RDW Coeff of Kristie Plt Count MPV Immature Gran % (Auto) Neut % (Auto) Lymph % (Auto) [place] % (Auto) Eos % (Auto) Baso % (Auto) Absolute Neuts (auto) Absolute Lymphs (auto) Nucleated RBC % Differential Comment PT INR APTT Sodium 129 L Potassium 4.1 Chloride 94 L Carbon Dioxide 30.0 Anion Gap 5 BUN 36 H Creatinine 1.60 H Estim Creat Clear Calc 44.36 Est GFR (MDRD) Af Amer 55 L Est GFR (MDRD) Non-Af 46 L BUN/Creatinine Ratio 22.5 H Glucose 234 H Lactic Acid 1.6 Calcium 8.3 L Total Bilirubin 0.90 AST 59 H ALT 26 Alkaline Phosphatase 80 Total Protein 6.6 Albumin 2.8 L Globulin 3.8 Albumin/Globulin Ratio 0.7 L Urine Color Yellow Urine Clarity Cloudy Urine pH 6.0 Ur Specific [place] 1.015 Urine Protein 100 H Urine Glucose (UA) Normal Urine Ketones 5 H Urine Occult Blood 150 H Urine Nitrite Negative Urine Bilirubin 1 H Urine Urobilinogen 1 H Ur Leukocyte Esterase 500 H Urine RBC 10-25 SEEN Urine WBC 25-50 SEEN Ur Squamous Epith Cells 0 SEEN Urine Bacteria RARE Urine Mucus 0 SEEN 03/05/20 03/05/20 23:55 23:55 WBC 13.8 H RBC 3.97 L Hgb 12.2 L Hct 36.8 L MCV 92.7 MCH 30.7 MCHC 33.2 RDW Std Deviation 43.2 RDW Coeff of Kristie 12.7 Plt Count 153 MPV 10.6 Immature Gran % (Auto) 0.700 Neut % (Auto) 89.0 H Lymph % (Auto) 1.8 L [place] % (Auto) 7.6 Eos % (Auto) 0.8 Baso % (Auto) 0.1 Absolute Neuts (auto) 12.3 H Absolute Lymphs (auto) 0.25 L Nucleated RBC % 0 Differential Comment SCANNED PT 15.8 H INR 1.3 APTT 28.8 Sodium Potassium Chloride Carbon Dioxide Anion Gap BUN Creatinine Estim Creat Clear Calc Est GFR (MDRD) Af Amer Est GFR (MDRD) Non-Af BUN/Creatinine Ratio Glucose Lactic Acid Calcium Total Bilirubin AST ALT Alkaline Phosphatase Total Protein Albumin Globulin Albumin/Globulin Ratio Urine Color Urine Clarity Urine pH Ur Specific [place] Urine Protein Urine Glucose (UA) Urine Ketones Urine Occult Blood Urine Nitrite Urine Bilirubin Urine Urobilinogen Ur Leukocyte Esterase Urine RBC Urine WBC Ur Squamous Epith Cells Urine Bacteria Urine Mucus General: Lethargic Lungs: Clear to auscultation, Normal air movement Cardiovascular: Regular rate, Regular Rhythm, No murmurs Capillary Refill: <3 seconds Peripheral Pulses: Normal Skin Color: [place] - Attestation Sepsis Attestation: Sepsis re-evaluation was performed
[2020-03-06] MEDS: 0.9% Normal Saline 1,000 ML 100 ML IV ×2 (08:21→21:32)
[2020-03-06 08:52] LABS: Amphetamine Urine VISTA NEGATIVE (<1000 ng/mL); Barbiturate Urine VISTA NEGATIVE (< 200 ng/mL); Benzodiazepine Urine VISTA NEGATIVE (< 200 ng/mL); Cocaine Urine VISTA NEGATIVE (< 300 ng/mL); Ecstacy Urine VISTA NEGATIVE (< 500 ng/mL); Methadone Urine VISTA NEGATIVE (< 300 ng/mL); PCP Urine VISTA NEGATIVE (< 25 ng/mL); THC Urine VISTA NEGATIVE (< 50 ng/mL); Vista UDS pH Range 5
[2020-03-06 09:01] LABS: Hemoglobin A1c 6.3 % (3.8-5.6)
[2020-03-06] MEDS: Hydrocortisone Sod Succinate 100 MG/2 ML Vial 50 MG IV ×3 (10:08→22:41)
[2020-03-06] MEDS: Enoxaparin 40 MG/0.4 ML Syringe SC (10:09)
--- NOTE | 2020-03-06 10:40 | PCM.RX.CS ---
Consult Pharmacy has been consulted to manage selected antiobiotic: Vancomycin Type of Consult: New start Suspected Infection: Skin/Soft tissue Labs: Sodium 129 mmol/L (136-145) L 03/05/20 23:55 Potassium 4.1 mmol/L (3.5-5.1) 03/05/20 23:55 Chloride 94 mmol/L (98-107) L 03/05/20 23:55 Carbon Dioxide 30.0 mmol/L (21.0-32.0) 03/05/20 23:55 Anion Gap 5 (5-15) 03/05/20 23:55 BUN 36 mg/dL (7-18) H 03/05/20 23:55 Creatinine 1.60 mg/dL (0.70-1.30) H 03/05/20 23:55 Est GFR (MDRD) Af Amer 55 mL/min (>60) L 03/05/20 23:55 Est GFR (MDRD) Non-Af 46 mL/min (>60) L 03/05/20 23:55 BUN/Creatinine Ratio 22.5 RATIO (10-20) H 03/05/20 23:55 Glucose 234 mg/dL (74-106) H 03/05/20 23:55 Microbiology: Microbiology 03/06/20 04:15 Mucosa - Nasopharyngeal Respiratory Panel (PCR) - Final 03/06/20 04:15 Mucosa - Nasopharyngeal Coronavirus COVID-19 PCR - Final Goal Trough: 15-20 mcg/mL Pharmacy Plan for Drug Dosing: NEW START IV VANCOMYCIN Consulting Physician: Shahid Indication: Sepsis 2/2 ulcer of LLE Goal Trough: 15-20 SrCr: 1.6 CrCl: 50 mL/min (using AdjBW = 81.6kg) Comments: Will draw trough prior to 4th dose of total regimen. Vancomycin Dose: 1500 mg IV x1 given 03/06/20 @ 1011, then start 1000mg IV Q12hr Pending Level: 03/07/20 @2130 Pharmacy Service will continue to monitor and adjust dosing as required.
[2020-03-06 12:25] LABS: Bedside Glucose 176 mg/dL (70-110)
[2020-03-06 17:26] LABS: Bedside Glucose 174 mg/dL (70-110)
[2020-03-06] MEDS: Insulin Lispro 100 UNIT/ML INSULN.PEN SC ×2 (17:27→23:32)
[2020-03-06] MEDS: Vancomycin IV 1,000 MG/200 ML BAG 200 MG IV (22:42)
[2020-03-07] VITALS (9 sets, daily range): BP systolic 111–134; BP diastolic 58–66; PULSE 69–84; RESP 14–18; TEMP 36.4–37.2; O2SAT 95–97
[2020-03-07 00:26] LABS: Bedside Glucose 169 mg/dL (70-110)
[2020-03-07] MEDS: Hydrocortisone Sod Succinate 100 MG/2 ML Vial 50 MG IV ×3 (05:02→23:00)
[2020-03-07] MEDS: Insulin Lispro 100 UNIT/ML INSULN.PEN SC ×4 (05:30→23:03)
[2020-03-07 05:41] LABS: Bedside Glucose 168 mg/dL (70-110)
[2020-03-07 06:17] LABS: Absolute Lymphocyte Count 0.22 X10^3/uL (0.83-4.51); Absolute Neutrophil Count 7.2 X10^3/uL (2.0-7.7); Basophil# 0.01 X10^3/uL; Basophil% 0.1 % (0-1); Hematocrit 31.8 % (40-54); Hemoglobin 10.1 g/dL (13.0-16.5); Lymphocyte # 0.22 X10^3/ul (4.0); Lymphocyte % 2.8 % (19-41); Mean Corp Hgb Conc 31.8 g/dL (32-36); Mean Corpuscular Volume 97.5 fL (80-94); Mean Platelet Vol. 11.4 fl (6.2-12.0); Monocyte# 0.36 X10^3/uL; Monocyte% 4.6 % (0-10); NRBC Flagged by Analyzer 0 % (0-5); Neutrophil # 7.22 X10^3/uL (2.7-7.7); Neutrophil % 91.6 % (47-70); POSITIVE COUNT YES; POSITIVE DIFFERENTIAL YES; Platelet Count 96 K/mm3 (150-450); RBC Distribution Width CV 12.9 % (11.6-14.6); RBC Distribution Width SD 46.5 fl (35.1-43.9); Red Blood Count 3.26 M/mm3 (4.6-6.2); White Blood Count 7.9 K/mm3 (4.4-11.0)
[2020-03-07 06:21] LABS: Differential Indicated SCAN CRITERIA MET
[2020-03-07 06:39] LABS: Anion Gap 6 (5-15); BUN 41 mg/dL (7-18); BUN/Creat Ratio 33.9 RATIO (10-20); Calcium,Total 7.7 mg/dL (8.5-10.1); Chloride 104 mmol/L (98-107); Creatinine, Serum 1.21 mg/dL (0.70-1.30); Differential Comment SCANNED; EST Glomerular Filtration Rate 63 mL/min (>60); Est Glom Filt Rate - Afr Amer 76 mL/min (>60); Estimated Creatinine Clearance 58.65 ml/min; Glucose 164 mg/dL (74-106); Potassium 4.1 mmol/L (3.5-5.1); Sodium Level 134 mmol/L (136-145)
[2020-03-07] MEDS: 0.9% Normal Saline 1,000 ML 100 ML IV ×2 (08:39→18:57)
[2020-03-07] MEDS: Enoxaparin 40 MG/0.4 ML Syringe SC (09:22)
[2020-03-07] MEDS: Vancomycin IV 1,000 MG/200 ML BAG 200 MG IV ×2 (09:22→22:36)
[2020-03-07 11:45] LABS: Bedside Glucose 233 mg/dL (70-110)
--- NOTE | 2020-03-07 14:30 | PCM.PN.HOSP ---
Patient Problems: Active and Suspected Problems Septic shock (Acute) Subjective: Disoriented and difficult to have a conversation with Vitals/I&O's: Vital Signs Temp Pulse Resp BP Pulse Ox 97.6 F L 81 14 128/58 H 95 03/07/20 14:00 03/07/20 14:00 03/07/20 14:00 03/07/20 14:00 03/07/20 14:00 Oxygen Flow Rate (L/min) 1 Oxygen Delivery Method Room Air Weight: 208 lb 1.862 oz Body Mass Index (BMI) 29.7 Intake and Output for Last 24 Hours 03/05/20 03/06/20 03/07/20 23:59 23:59 23:59 Intake Total 4061.25 / 4061.25 1150.42 / 1150.42 Output Total 675 / 675 600 / 600 Balance 3386.25 / 3386.25 550.42 / 550.42 General: Alert, No apparent distress, Confused, Disoriented HEENT: Atraumatic, PERRLA, EOMI, Normocephalic Oral: Dry Mucosa Neck: Supple, No JVD Lungs: Clear to auscultation, Normal air movement, No rhonchi, No wheeze, No rales, Diminished Cardiovascular: Regular rate, Regular Rhythm, Normal S1, Normal S2, No murmurs Abdomen: Soft, Non Tender, Non-Distended, No Hepato-splenomegaly Extremities: No edema, Capillary Refill Less than 3 Seconds Skin: - - He has induration on the medial aspect of his right thigh with some slight erythema. There is some excoriation of the left calf appears to be improving Neurological: Neuro grossly intact, Sensory exam intact to light touch and pain Psych/Mental Status: Normal Affect, Appropriate Microbiology Past 72 Hours 03/06/20 01:15 Urine Catheter - Reed Urine Culture - Preliminary GPC Poss Enterococcus sp 03/06/20 04:15 Mucosa - Nasopharyngeal Respiratory Panel (PCR) - Final 03/06/20 04:15 Mucosa - Nasopharyngeal Coronavirus COVID-19 PCR - Final Laboratory Results 03/06/20 17:18: POC Glucose 174 H 03/06/20 23:31: POC Glucose 169 H 03/07/20 05:29: POC Glucose 168 H 03/07/20 06:04: WBC 7.9, RBC 3.26 L, Hgb 10.1 L, Hct 31.8 L, MCV 97.5 H D, MCH 31.0, MCHC 31.8 L, RDW Std Deviation 46.5 H, RDW Coeff of Kristie 12.9, Plt Count 96 L, MPV 11.4, Immature Gran % (Auto) 0.900, Neut % (Auto) 91.6 H, Lymph % (Auto) 2.8 L, [place] % (Auto) 4.6, Eos % (Auto) 0.0, Baso % (Auto) 0.1, Absolute Neuts (auto) 7.2, Absolute Lymphs (auto) 0.22 L, Nucleated RBC % 0, Differential Comment SCANNED 03/07/20 06:04: Sodium 134 L, Potassium 4.1, Chloride 104, Carbon Dioxide 24.0, Anion Gap 6, BUN 41 H, Creatinine 1.21, Estim Creat Clear Calc 58.65, Est GFR (MDRD) Af Amer 76, Est GFR (MDRD) Non-Af 63, BUN/Creatinine Ratio 33.9 H, Glucose 164 H, Calcium 7.7 L 03/07/20 11:32: POC Glucose 233 H Current Medications Acetaminophen (Tylenol) 650 mg PO Q6H PRN PRN PRN Reason: Pain Score 1-10/Temp > 100.7 F Dextrose (D50w Syringe) 0 gm IV X1 PRN; Protocol PRN Reason: Hypoglycemia Enoxaparin Sodium (Lovenox) 40 mg SC DAILY [facility] Last Admin: 03/07/20 09:22 Dose: 40 mg Documented by: Glucagon () 1 mg IM .X1 PRN PRN Reason: Hypoglycemia Hydrocortisone Sodium Succinate (Solu-Cortef) 50 mg IV Q8 [facility] Last Admin: 03/07/20 14:02 Dose: 50 mg Documented by: Sodium Chloride () 1,000 mls @ 100 mls/hr IV .Q10H [facility] Last Admin: 03/07/20 08:39 Dose: 100 mls/hr Documented by: Piperacillin Sod/Tazobactam (Sod 3.375 gm/ Sodium Chloride) 50 mls @ 12.5 mls/hr IV Q8 [facility] Last Admin: 03/07/20 14:02 Dose: 12.5 mls/hr Documented by: Vancomycin IV Pharmacy to Dose (1 ea/ Sodium Chloride) 500 mls @ 250 mls/hr IV PRN PRN; Protocol Sodium Chloride () 250 mls @ 15 mls/hr IV .[id number] PRN PRN Reason: Saline Flush Sodium Chloride () 250 mls @ 15 mls/hr IV .[id number] PRN PRN Reason: Additional IVPB Infusion Vancomycin HCl (Vancomycin) 1,000 mg in 200 mls @ 200 mls/hr IV Q12H LIND[facility] Last Infusion: 03/07/20 10:24 Dose: Infused Documented by: Insulin Human Lispro (Humalog Kwikpen (Bkc)) 0 unit SC Q6 [facility]; Protocol Last Admin: 03/07/20 11:34 Dose: 3 unit Documented by: Ondansetron HCl (Zofran) 4 mg IV Q8H PRN PRN PRN Reason: NAUSEA/VOMITING Sodium Chloride () 10 - 40 ml IV UD PRN PRN Reason: SALINE FLUSH STROKE Vital Signs/Narrative: Vital Signs Temp Pulse Resp BP Pulse Ox 03/07/20 14:00 97.6 F L 81 14 128/58 H 95 Medical Necessity - Tobacco Use Smoking Status: Unknown if ever smoked Assessment/Plan All Active Problems Septic shock (Acute) 1. Sepsis secondary to UTI versus cellulitis/ROEL -Did not have shock as there is no endorgan damage, and there is no documented vital signs with significant hypotension or a decreased mean arterial pressure -Continue with IV antibiotics, urine culture is pending but there is only 25,000-50,000 colony-forming units -As he is more alert today can restart taking his home medications, COVID screen was negative -Continue with IV fluids until tomorrow -Admission was 1.60 currently 1.21, will continue to monitor -Takes outpatient steroids so we will restart those tomorrow and can discontinue his Solu-Cortef at that time 2. DM 2 with polyneuropathy -Continue with sliding scale insulin, and can adjust to a regular meal schedule since he has been cleared for food -Anticipate elevation in his blood sugars given the steroids that he is on 3. Schizophrenia -Part of his lethargy could have been due to increased drug concentrations given his ROLE -His renal function is improving, will resume his risperidone and his Dilantin as well as Lamictal -Continue with trihexyphenidyl 4. HTN/HLD/peripheral edema -He did have initially soft blood pressures, will hold his medication -He is on Bumex, and Zaroxolyn therefore will be cautious with his IV fluids -If blood pressure remains stable, can restart Norvasc as well as metoprolol and his diuretics and lisinopril -Continue with Lipitor DVT: Lovenox Inpatient E&M: [id number] Subs Hosp L2
--- NOTE | 2020-03-07 15:20 | CASEMGMT ---
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 Phone call to Elle at [facility] who states that pt will be returning to their sister facility [facility] at time of discharge as [facility] is unable to isolate pt in precautions for 14 days. SW inquired about family notification and Elle states that their facility will be contacting pt guardian Terrance Darius and informing of d/c plan. Clinical update faxed. Precert will need to be obtained. SW to continue to follow for d/c planning. Plan: [facility], pending precert NEVILLE Perry
[2020-03-07 17:15] LABS: Bedside Glucose 165 mg/dL (70-110)
[2020-03-07 22:15] LABS: Vancomycin, Trough Level 13.7 ug/mL (5.0-15.0)
[2020-03-07] MEDS: TRIHEXYPHENIDYL HCL 2 MG TABLET PO (23:00)
[2020-03-07] MEDS: Atorvastatin Calcium 40 MG Tablet PO (23:00)
[2020-03-07] MEDS: lamoTRIgine 100 MG Tablet PO (23:00)
--- NOTE | 2020-03-07 23:05 | PCM.RX.CS ---
Consult Pharmacy has been consulted to manage selected antiobiotic: Vancomycin Type of Consult: Follow-up Suspected Infection: Sepsis Labs: Sodium 134 mmol/L (136-145) L 03/07/20 06:04 Potassium 4.1 mmol/L (3.5-5.1) 03/07/20 06:04 Chloride 104 mmol/L (98-107) 03/07/20 06:04 Carbon Dioxide 24.0 mmol/L (21.0-32.0) 03/07/20 06:04 Anion Gap 6 (5-15) 03/07/20 06:04 BUN 41 mg/dL (7-18) H 03/07/20 06:04 Creatinine 1.21 mg/dL (0.70-1.30) 03/07/20 06:04 Est GFR (MDRD) Af Amer 76 mL/min (>60) 03/07/20 06:04 Est GFR (MDRD) Non-Af 63 mL/min (>60) 03/07/20 06:04 BUN/Creatinine Ratio 33.9 RATIO (10-20) H 03/07/20 06:04 Glucose 164 mg/dL (74-106) H 03/07/20 06:04 Vancomycin Trough 13.7 ug/mL (5.0-15.0) 03/07/20 21:36 Microbiology: Microbiology 03/06/20 01:15 Urine Catheter - Reed Urine Culture - Preliminary GPC Poss Enterococcus sp 03/06/20 04:15 Mucosa - Nasopharyngeal Respiratory Panel (PCR) - Final 03/06/20 04:15 Mucosa - Nasopharyngeal Coronavirus COVID-19 PCR - Final Goal Trough: 15-20 mcg/mL Pharmacy Plan for Drug Dosing: Pharmacy Service will continue to monitor and adjust dosing as required. TROUGH 13.7 AND SCr DOWN FROM 1.6 TO 1.21. INCREASE TO 1250MG Q12H AND REDRAW TROUGH 03/09 Follow-Up Labs: Trough Vancomycin Labs to be done on [date and time ordered]: 03/09
[2020-03-07 23:11] LABS: Bedside Glucose 185 mg/dL (70-110)
[2020-03-08] VITALS (14 sets, daily range): BP systolic 148–154; BP diastolic 67–76; PULSE 40–118; RESP 18–22; TEMP 36.3–36.8; O2SAT 88–98
[2020-03-08] MEDS: 0.9% Normal Saline 1,000 ML 100 ML IV ×2 (05:09→17:23)
[2020-03-08] MEDS: Hydrocortisone Sod Succinate 100 MG/2 ML Vial 50 MG IV ×2 (05:09→13:50)
[2020-03-08] MEDS: Levothyroxine 125 MCG Tablet PO (05:14)
[2020-03-08 05:36] LABS: Absolute Lymphocyte Count 0.24 X10^3/uL (0.83-4.51); Absolute Neutrophil Count 6.6 X10^3/uL (2.0-7.7); Basophil# 0.01 X10^3/uL; Basophil% 0.1 % (0-1); Hematocrit 30.8 % (40-54); Hemoglobin 9.9 g/dL (13.0-16.5); Lymphocyte # 0.24 X10^3/ul (4.0); Lymphocyte % 3.3 % (19-41); Mean Corp Hgb Conc 32.1 g/dL (32-36); Mean Corpuscular Hgb 30.4 pg (27.0-32.0); Mean Corpuscular Volume 94.5 fL (80-94); Monocyte# 0.31 X10^3/uL; Monocyte% 4.3 % (0-10); NRBC Flagged by Analyzer 0 % (0-5); Neutrophil # 6.64 X10^3/uL (2.7-7.7); Neutrophil % 91.2 % (47-70); POSITIVE DIFFERENTIAL YES; POSITIVE MORPHOLOGY YES; Platelet Count 111 K/mm3 (150-450); RBC Distribution Width CV 12.5 % (11.6-14.6); RBC Distribution Width SD 43.6 fl (35.1-43.9); Red Blood Count 3.26 M/mm3 (4.6-6.2); White Blood Count 7.3 K/mm3 (4.4-11.0)
[2020-03-08 05:41] LABS: Differential Indicated SCAN CRITERIA MET
[2020-03-08 05:45] LABS: Anion Gap 5 (5-15); BUN 34 mg/dL (7-18); BUN/Creat Ratio 35.1 RATIO (10-20); Calcium,Total 7.9 mg/dL (8.5-10.1); Chloride 104 mmol/L (98-107); Creatinine, Serum 0.97 mg/dL (0.70-1.30); EST Glomerular Filtration Rate 81 mL/min (>60); Est Glom Filt Rate - Afr Amer 98 mL/min (>60); Estimated Creatinine Clearance 73.17 ml/min; Glucose 193 mg/dL (74-106); Potassium 3.5 mmol/L (3.5-5.1); Sodium Level 135 mmol/L (136-145)
[2020-03-08 06:26] LABS: Platelet Estimate SLT DEC (ADEQ)
[2020-03-08] MEDS: Insulin Lispro 100 UNIT/ML INSULN.PEN SC ×4 (06:35→22:37)
[2020-03-08 06:40] LABS: Bedside Glucose 178 mg/dL (70-110)
[2020-03-08] MEDS: Enoxaparin 40 MG/0.4 ML Syringe SC (09:04)
[2020-03-08] MEDS: Aspirin 81 MG TAB.CHEW PO (09:05)
[2020-03-08] MEDS: TRIHEXYPHENIDYL HCL 2 MG TABLET PO ×2 (09:05→22:32)
[2020-03-08] MEDS: predniSONE 20 MG Tablet PO (09:05)
[2020-03-08] MEDS: Phenytoin Na 100 MG/4 ML UDC 125 MG PO (09:05)
[2020-03-08] MEDS: lamoTRIgine 100 MG Tablet PO ×2 (09:05→22:31)
--- NOTE | 2020-03-08 10:10 | CASEMGMT ---
Social Work SW placed call to Yadira at [facility] who confirms they will be admitting pt upon d/c. Updated clinicals faxed and requested precert be started. NEVILLE Perry
[2020-03-08 11:20] LABS: Bedside Glucose 198 mg/dL (70-110)
--- NOTE | 2020-03-08 14:37 | PCM.PN.HOSP ---
Patient Problems: Active and Suspected Problems Septic shock (Acute) Subjective: Doing well, no issues overnight Vitals/I&O's: Vital Signs Temp Pulse Resp BP Pulse Ox 98.0 F 66 20 H 148/68 H 93 03/08/20 08:00 03/08/20 08:00 03/08/20 08:00 03/08/20 08:00 03/08/20 08:27 Oxygen Flow Rate (L/min) 2 Oxygen Delivery Method Room Air Weight: 208 lb 1.862 oz Body Mass Index (BMI) 29.7 Intake and Output for Last 24 Hours 03/06/20 03/07/20 03/08/20 23:59 23:59 23:59 Intake Total 4061.25 / 4061.25 3401.04 / 3401.04 2050. / 2050. Output Total 675 / 675 900 / 900 Balance 3386.25 / 3386.25 2501.04 / 2501.04 2050.46 / 2050.46 General: Alert, No apparent distress, Confused, Disoriented HEENT: Atraumatic, PERRLA, EOMI, Normocephalic Oral: Dry Mucosa Neck: Supple, No JVD Lungs: Clear to auscultation, Normal air movement, No rhonchi, No wheeze, No rales, Diminished Cardiovascular: Regular rate, Regular Rhythm, Normal S1, Normal S2, No murmurs Abdomen: Soft, Non Tender, Non-Distended, No Hepato-splenomegaly Extremities: No edema, Capillary Refill Less than 3 Seconds Skin: - - He has induration on the medial aspect of his right thigh with some slight erythema which is improving. There is some excoriation of the left calf appears to be improving Neurological: Neuro grossly intact, Sensory exam intact to light touch and pain Psych/Mental Status: Normal Affect, Appropriate Microbiology Past 72 Hours 03/05/20 23:55 Blood Culture (Wb) - Right Forearm Blood Culture - Preliminary No growth in 48 hours. 03/05/20 23:55 Blood Culture (Wb) - Arm Left Blood Culture - Preliminary No growth in 48 hours. 03/06/20 01:15 Urine Catheter - Reed Urine Culture - Final Enterococcus faecalis 03/06/20 04:15 Mucosa - Nasopharyngeal Respiratory Panel (PCR) - Final 03/06/20 04:15 Mucosa - Nasopharyngeal Coronavirus COVID-19 PCR - Final Laboratory Results 03/07/20 17:02: POC Glucose 165 H 03/07/20 21:36: Vancomycin Trough 13.7 03/07/20 23:02: POC Glucose 185 H 03/08/20 05:17: WBC 7.3, RBC 3.26 L, Hgb 9.9 L, Hct 30.8 L, MCV 94.5 H, MCH 30.4, MCHC 32.1, RDW Std Deviation 43.6, RDW Coeff of Kristie 12.5, Plt Count 111 L, MPV 11.0, Immature Gran % (Auto) 1.100 H, Neut % (Auto) 91.2 H, Lymph % (Auto) 3.3 L, [place] % (Auto) 4.3, Eos % (Auto) 0.0, Baso % (Auto) 0.1, Absolute Neuts (auto) 6.6, Absolute Lymphs (auto) 0.24 L, Nucleated RBC % 0, Differential Comment COMMENT, Platelet Estimate SLT 03/08/20 05:17: Sodium 135 L, Potassium 3.5, Chloride 104, Carbon Dioxide 26.0, Anion Gap 5, BUN 34 H, Creatinine 0.97, Estim Creat Clear Calc 73.17, Est GFR (MDRD) Af Amer 98, Est GFR (MDRD) Non-Af 81, BUN/Creatinine Ratio 35.1 H, Glucose 193 H, Calcium 7.9 L 03/08/20 06:33: POC Glucose 178 H 03/08/20 11:08: POC Glucose 198 H Current Medications Acetaminophen (Tylenol) 650 mg PO Q6H PRN PRN PRN Reason: Pain Score 1-10/Temp > 100.7 F Aspirin (Aspirin, Baby) 81 mg PO DAILY@0800 [facility] Last Admin: 03/08/20 09:05 Dose: 81 mg Documented by: Atorvastatin Calcium (Lipitor) 40 mg PO DAILY@2200 [facility] Last Admin: 03/07/20 23:00 Dose: 40 mg Documented by: Dextrose (D50w Syringe) 0 gm IV X1 PRN; Protocol PRN Reason: Hypoglycemia Enoxaparin Sodium (Lovenox) 40 mg SC DAILY [facility] Last Admin: 03/08/20 09:04 Dose: 40 mg Documented by: Glucagon () 1 mg IM .X1 PRN PRN Reason: Hypoglycemia Hydrocortisone Sodium Succinate (Solu-Cortef) 50 mg IV Q8 [facility] Last Admin: 03/08/20 13:50 Dose: 50 mg Documented by: Sodium Chloride () 1,000 mls @ 100 mls/hr IV .Q10H [facility] Last Infusion: 03/08/20 12:34 Dose: 100 mls/hr Documented by: Piperacillin Sod/Tazobactam (Sod 3.375 gm/ Sodium Chloride) 50 mls @ 12.5 mls/hr IV Q8 [facility] Last Admin: 03/08/20 13:50 Dose: 12.5 mls/hr Documented by: Vancomycin IV Pharmacy to Dose (1 ea/ Sodium Chloride) 500 mls @ 250 mls/hr IV PRN PRN; Protocol Sodium Chloride () 250 mls @ 15 mls/hr IV .[id number] PRN PRN Reason: Saline Flush Last Infusion: 03/08/20 10:50 Dose: 0 mls/hr Documented by: Sodium Chloride () 250 mls @ 15 mls/hr IV .[id number] PRN PRN Reason: Additional IVPB Infusion Vancomycin HCl 1,250 mg/ (Sodium Chloride) 275 mls @ 167 mls/hr IV Q12H [facility] Last Infusion: 03/08/20 12:34 Dose: Infused Documented by: Insulin Human Lispro (Humalog Kwikpen (Bkc)) 0 unit SC ACHS [facility]; Protocol Last Admin: 03/08/20 11:09 Dose: 2 unit Documented by: Lamotrigine (Lamictal) 100 mg PO BID [facility] Last Admin: 03/08/20 09:05 Dose: 100 mg Documented by: Levothyroxine Sodium (Synthroid) 125 mcg PO DAILY@0600 [facility] Last Admin: 03/08/20 05:14 Dose: 125 mcg Documented by: Magnesium Hydroxide (Milk Of Magnesia) 30 ml PO DAILY [facility] Last Admin: 03/08/20 09:06 Dose: Not Given Documented by: Non-Formulary Medication (Risperidone Microspheres) 50 mg IM X1 [facility] Ondansetron HCl (Zofran) 4 mg IV Q8H PRN PRN PRN Reason: NAUSEA/VOMITING Phenytoin Sodium (Dilantin) 125 mg PO DAILY [facility] Last Admin: 03/08/20 09:05 Dose: 125 mg Documented by: Prednisone () 20 mg PO DAILY@0800 [facility] Last Admin: 03/08/20 09:05 Dose: 20 mg Documented by: Bryn (Senokot) 1 tablet PO DAILY [facility] Last Admin: 03/08/20 09:06 Dose: Not Given Documented by: Sodium Chloride () 10 - 40 ml IV UD PRN PRN Reason: SALINE FLUSH Trihexyphenidyl HCl (Trihexyphenidyl Hcl) 2 mg PO BID [facility] Last Admin: 03/08/20 09:05 Dose: 2 mg Documented by: Medical Necessity - Tobacco Use Smoking Status: Unknown if ever smoked Assessment/Plan All Active Problems Septic shock (Acute) 1. Sepsis secondary to UTI versus cellulitis/ROEL -Did not have shock as there is no endorgan damage, and there is no documented vital signs with significant hypotension or a decreased mean arterial pressure -Continue with IV antibiotics, urine culture is pending but there is only 25,000-50,000 colony-forming units -As he is more alert today can restart taking his home medications, COVID screen was negative -Continue with IV fluids -Admission was 1.60 currently 0.97, will continue to monitor -Takes outpatient steroids so we will restart those tomorrow and can discontinue his Solu-Cortef at that time 2. DM 2 with polyneuropathy -Continue with sliding scale insulin, and can adjust to a regular meal schedule since he has been cleared for food -Anticipate elevation in his blood sugars given the steroids that he is on 3. Schizophrenia -Part of his lethargy could have been due to increased drug concentrations given his ROEL -His renal function is improving, will resume his risperidone and his Dilantin as well as Lamictal -Continue with trihexyphenidyl 4. HTN/HLD/peripheral edema -He did have initially soft blood pressures, will hold his medication -He is on Bumex, and Zaroxolyn therefore will be cautious with his IV fluids -If blood pressure remains stable, can restart Norvasc as well as metoprolol and his diuretics and lisinopril -Continue with Lipitor DVT: Lovenox Inpatient E&M: [id number] [facility] Hosp L2
[2020-03-08 16:36] LABS: Bedside Glucose 197 mg/dL (70-110)
--- NOTE | 2020-03-08 20:02 | NURSING ---
Nursing supervisor boarding contacted at this time to attempt IV start as this RN attempted twice unsuccessfully.
[2020-03-08] MEDS: 0.9% Saline Lock 10 ML Syringe IV (20:35)
[2020-03-08] MEDS: Atorvastatin Calcium 40 MG Tablet PO (22:31)
[2020-03-09 02:59] VITALS: PULSE 49
[2020-03-09 04:44] VITALS: BP 150/71; PULSE 75; RESP 18; TEMP 36.4; O2SAT 94
[2020-03-09] MEDS: 0.9% Saline Lock 10 ML Syringe IV (05:17)
[2020-03-09] MEDS: Levothyroxine 125 MCG Tablet PO (05:17)
[2020-03-09 06:16] LABS: Bedside Glucose 158 mg/dL (70-110)
[2020-03-09 06:47] VITALS: PULSE 58
[2020-03-09] MEDS: 0.9% Normal Saline 1,000 ML 100 ML IV (06:49)
[2020-03-09 07:15] LABS: Bedside Glucose 89 mg/dL (70-110)
[2020-03-09 07:19] VITALS: O2SAT 94
[2020-03-09] MEDS: Aspirin 81 MG TAB.CHEW PO (08:26)
[2020-03-09] MEDS: Phenytoin Na 100 MG/4 ML UDC 125 MG PO (08:26)
[2020-03-09] MEDS: predniSONE 20 MG Tablet PO (08:26)
[2020-03-09] MEDS: lamoTRIgine 100 MG Tablet PO (08:26)
[2020-03-09] MEDS: TRIHEXYPHENIDYL HCL 2 MG TABLET PO (08:27)
[2020-03-09] MEDS: Enoxaparin 40 MG/0.4 ML Syringe SC (08:27)
--- NOTE | 2020-03-09 10:56 | TREXTCAR_ITS ---
- Diet 03/07/20 11:14 Diet: Cardiac: Calorie-Controlled Food consistency:: Soft Liquid Consistency:: Regular/Thin Is pt able to select menu?: No Diet Comments: supervised 03/07-small bites-one sip at a time-NO STRAWS-d/c sup 03/08 if ac How many daily calories?: 2000 calorie - Routine Orders/Code Status Routine Lab Work: [facility] Code Status: DNRCC - Therapies Physical Therapy: Eval and Treat Occupational Therapy: Eval and Treat - Allergies/Procedures Done in Hospital Allergies/Adverse Reactions: Allergies egg Allergy (Verified 03/06/20 00:22) PT UNABLE TO RESPOND-NEEDS F/U - Type of Care/Length of Stay Estimated LOS: Convalescent Care Less Than 30 days Type of Care Needed: Skilled Rehab Potential: Fair Prognosis: Fair - Additional Orders/Day of Discharge Day of Discharge: 03/09/20 - Dietary and Speech Recommendations Dietitian Recommendations/Changes: Advance diet as tolerated to 2000 calorie/Cardiac. - Follow Up Care Primary Care Physician: Pipo Moya MD [Primary Care Provider] - Please follow up with your Primary Care Physician in: 3-5 days
[2020-03-09 11:20] LABS: Bedside Glucose 144 mg/dL (70-110)
[2020-03-09 13:25] VITALS: BP 147/61; PULSE 62; RESP 20; TEMP 36.9; O2SAT 98
--- NOTE | 2020-03-09 13:44 | NURSING ---
nurse to nurse report called to Sylvia Barkley, transport to be here @ 1400
--- NOTE | 2020-03-09 14:17 | CASEMGMT ---
Social Work SW spoke with physician who states pt is ready for discharge. Phone call to [facility] and they do have precert and can accept pt. Phone call to pt guardian Terrance Lane and he is aware pt will be going to [facility] at discharge and is agreeable to discharge today. Orders and Covid screen faxed to [facility] and notified of d/c time. Transportation arranged with [facility] for 2:00 ambulance transport. Nursing notified. NEVILLE Perry
--- NOTE | 2020-03-09 14:54 | DS.PCM_ITS ---
Discharge Date and Diagnosis - Problem List Patient Problems: Active and Suspected Problems Septic shock (Acute) Date of Admission: 03/06/20 Date of Discharge: 03/09/20 - Primary Discharge Diagnosis Acute Problems: Active Problems Septic shock (Acute) - Secondary Discharge Diagnosis Chronic Problems: Chronic Problems Ulcer of right lower extremity with fat layer exposed (Chronic) Ulcer of left lower extremity with fat layer exposed (Chronic) Venous insufficiency (Chronic) Peripheral vascular disease (Chronic) Lower extremity edema (Chronic) Type 2 diabetes mellitus with diabetic polyneuropathy (Chronic) Hospital Course and Treatment Imaging Results: CXR: IMPRESSION: Lungs are expanded. There are mild fibrotic changes. There are NO acute infiltrates. There is no demonstrated pleural abnormality. Normal size heart. Consults: None Operations: None Procedures: None Summary of Care Provided: Per HPI: The patient is a 69 year old M with a significant history of dementia, diabetes, hypertension, paranoid schizophrenia; colon cancer status post partial colectomy and who [facility] in a penitentiary presenting with a fever. Reportedly he had fever all day on the day of presentation and he was treated with Tylenol. Reportedly recently he was started on Keflex for cellulitis of the thigh. At emergent department patient was found to have a fever with Tmax of 103F; he was hypotensive and he had leukocytosis as well as abnormal urinalysis. He was given Zosyn at the ED and 2 liters of IVF was ordered. Hospital Course: 1. Sepsis secondary to UTI versus cellulitis/ROEL: 69-year-old male with dementia and schizophrenia presents to the hospital with sepsis. His urine culture grew 25-80,000 CFU's of enterococcus and he was started on Zosyn and vancomycin, blood cultures were negative. He had some right medial thigh induration and redness which has been steadily improved since he has been here. He was cleared by speech to take p.o so he will be transitioned to Augmentin on discharge to complete a 10-day course. He had never been here before therefore his initial creatinine of 1.6 had no relative meaning at the time. However with IV fluids his creatinine has improved to 0.97 therefore he likely did have an ROEL on admission, initial lactic acid was 1.6, and blood pressures have been stable. His blood pressure medication were held because he had a couple blood pressures in the low 90s, and initially he was started on stress dosing for steroids since he was on prednisone as an outpatient, however he is stable to restart his home blood pressure medications including lisinopril, Zaroxolyn, metoprolol, Bumex. I do recommend that he follow-up with a BMP as an outpatient to monitor his renal function. I did discuss with him that he will be discharged today though I am not sure how much she understands his communication is limited. 2. His other medical diagnoses were evaluated and his home medications were continued where appropriate Patient Problems: Active and Suspected Problems Septic shock (Acute) - Physical Exam Vitals/I&O's: Vital Signs Temp Pulse Resp BP Pulse Ox 98.4 F 62 20 H 147/61 H 98 03/09/20 13:25 03/09/20 13:25 03/09/20 13:25 03/09/20 13:25 03/09/20 13:25 Oxygen Flow Rate (L/min) 2 Oxygen Delivery Method Room Air Weight: 208 lb 1.862 oz Body Mass Index (BMI) 29.7 Intake and Output for Last 24 Hours 03/07/20 03/08/20 03/09/20 23:59 23:59 23:59 Intake Total 3401.04 / 3401.04 4018.13 / 4018.13 2898.50 / 2898.50 Output Total 900 / 900 250 / 250 300 / 300 Balance 2501.04 / 2501.04 3768.13 / 3768.13 2598.50 / 2598.50 General: Alert, No apparent distress, Confused, Disoriented HEENT: Atraumatic, PERRLA, EOMI, Normocephalic Oral: Dry Mucosa Neck: Supple, No JVD Lungs: Clear to auscultation, Normal air movement, No rhonchi, No wheeze, No rales, Diminished Cardiovascular: Regular rate, Regular Rhythm, Normal S1, Normal S2, No murmurs Abdomen: Soft, Non Tender, Non-Distended, No Hepato-splenomegaly Extremities: No edema, Capillary Refill Less than 3 Seconds Skin: - - He has induration on the medial aspect of his right thigh with some slight erythema which is improving. There is some excoriation of the left calf appears to be improving Neurological: Neuro grossly intact, Sensory exam intact to light touch and pain Psych/Mental Status: Normal Affect, Appropriate Microbiology Past 72 Hours 03/05/20 23:55 Blood Culture (Wb) - Right Forearm Blood Culture - Preliminary No growth in 48 hours. 03/05/20 23:55 Blood Culture (Wb) - Arm Left Blood Culture - Preliminary No growth in 48 hours. 03/06/20 01:15 Urine Catheter - Reed Urine Culture - Final Enterococcus faecalis Laboratory Results 03/08/20 16:29: POC Glucose 197 H 03/08/20 22:34: POC Glucose 158 H 03/09/20 06:47: POC Glucose 89 03/09/20 11:15: POC Glucose 144 H Current Medications Acetaminophen (Tylenol) 650 mg PO Q6H PRN PRN PRN Reason: Pain Score 1-10/Temp > 100.7 F Aspirin (Aspirin, Baby) 81 mg PO DAILY@0800 [facility] Last Admin: 03/09/20 08:26 Dose: 81 mg Documented by: Atorvastatin Calcium (Lipitor) 40 mg PO DAILY@2200 [facility] Last Admin: 03/08/20 22:31 Dose: 40 mg Documented by: Dextrose (D50w Syringe) 0 gm IV X1 PRN; Protocol PRN Reason: Hypoglycemia Enoxaparin Sodium (Lovenox) 40 mg SC DAILY [facility] Last Admin: 03/09/20 08:27 Dose: 40 mg Documented by: Glucagon () 1 mg IM .X1 PRN PRN Reason: Hypoglycemia Sodium Chloride () 1,000 mls @ 100 mls/hr IV .Q10H [facility] Last Infusion: 03/09/20 13:36 Dose: Infused Documented by: Piperacillin Sod/Tazobactam (Sod 3.375 gm/ Sodium Chloride) 50 mls @ 12.5 mls/hr IV Q8 [facility] Last Infusion: 03/09/20 11:22 Dose: Infused Documented by: Vancomycin IV Pharmacy to Dose (1 ea/ Sodium Chloride) 500 mls @ 250 mls/hr IV PRN PRN; Protocol Sodium Chloride () 250 mls @ 15 mls/hr IV .[id number] PRN PRN Reason: Saline Flush Last Infusion: 03/09/20 13:37 Dose: Infused Documented by: Sodium Chloride () 250 mls @ 15 mls/hr IV .[id number] PRN PRN Reason: Additional IVPB Infusion Vancomycin HCl 1,250 mg/ (Sodium Chloride) 275 mls @ 167 mls/hr IV Q12H [facility] Last Infusion: 03/09/20 11:22 Dose: Infused Documented by: Insulin Human Lispro (Humalog Kwikpen (Bkc)) 0 unit [facility]; Protocol Last Admin: 03/09/20 11:22 Dose: Not Given Documented by: Lamotrigine (Lamictal) 100 mg PO BID [facility] Last Admin: 03/09/20 08:26 Dose: 100 mg Documented by: Levothyroxine Sodium (Synthroid) 125 mcg PO DAILY@0600 [facility] Last Admin: 03/09/20 05:17 Dose: 125 mcg Documented by: Magnesium Hydroxide (Milk Of Magnesia) 30 ml PO DAILY [facility] Last Admin: 03/09/20 08:27 Dose: Not Given Documented by: Ondansetron HCl (Zofran) 4 mg IV Q8H PRN PRN PRN Reason: NAUSEA/VOMITING Phenytoin Sodium (Dilantin) 125 mg PO DAILY [facility] Last Admin: 03/09/20 08:26 Dose: 125 mg Documented by: Prednisone () 20 mg PO DAILY@0800 [facility] Last Admin: 03/09/20 08:26 Dose: 20 mg Documented by: Senna (Senokot) 1 tablet PO DAILY [facility] Last Admin: 03/09/20 08:27 Dose: Not Given Documented by: Sodium Chloride () 10 - 40 ml IV UD PRN PRN Reason: SALINE FLUSH Last Admin: 03/09/20 05:17 Dose: 10 ml Documented by: Trihexyphenidyl HCl (Trihexyphenidyl Hcl) 2 mg PO BID [facility] Last Admin: 03/09/20 08:27 Dose: 2 mg Documented by: Home Medications: Medications to take at Discharge Acetaminophen 325 mg PO Q4H PRN PRN 03/06/20 Amlodipine [Norvasc] 2.5 mg PO DAILY 03/06/20 Aspirin 81 mg PO DAILY 03/06/20 Atorvastatin Calcium [Lipitor] 40 mg PO DAILY 03/06/20 Bumetanide [Bumex] 0.5 mg PO DAILY 03/06/20 Cyanocobalamin (Vitamin B-12) [Vitamin B12] 2,000 mcg PO DAILY 03/06/20 Lamotrigine 100 mg PO BID 03/06/20 Levothyroxine [Synthroid] 125 mcg PO DAILY 03/06/20 Lisinopril [Prinivil] 10 mg PO BID 03/06/20 Lorazepam [Ativan] 2 mg PO BID 03/06/20 Magnesium Hydroxide [Milk of Magnesia] 30 ml PO DAILY 03/06/20 Metolazone [Zaroxolyn] 2.5 mg PO DAILY 03/06/20 Metoprolol Succinate 50 mg PO DAILY 03/06/20 Phenytoin Na [Dilantin] 125 mg PO DAILY 03/06/20 Prednisone 20 mg PO DAILY 03/06/20 Risperidone Microspheres [Risperdal Consta] 50 mg IM X1 03/06/20 Senna [Senokot] 1 tab PO DAILY 03/06/20 Trihexyphenidyl HCl 2 mg PO BID 03/06/20 Amoxicillin/Potassium Clav [Augmentin 875-125 Tablet] 1 ea PO BID #14 tab 03/09/20 Following Prescrptions Were Given to Patient: Amoxicillin/Potassium Clav [Augmentin 875-125 Tablet] 1 ea PO BID #14 tab Primary Care Physician: Pipo Moya MD [Primary Care Provider] - Please follow up with your Primary Care Physician in: 3-5 days Disposition: [facility]iary facility Minutes spent on discharge:: 35 Patient Condition:: Stable Medical Necessity - Tobacco Use Smoking Status: Unknown if ever smoked Meaningful Use Info Meaningful Use Diagnoses (Choose all that apply): None applicable Inpatient E&M: [id number] [facility]
== END 2020-03-09 14:00 | disposition skilled nursing facility (03) | DRG 603 ==
LOC: ED 03-06 04:04 → PCU 03-06 04:55
PROVIDERS: Admitting Provider Hospitalist; Emergency Provider Emergency Medicine; PCP Family Medicine; Visit Provider Family Medicine
DX: L03.119 Cellulitis of unspecified part of limb (principal); F20.0 Paranoid schizophrenia; N17.9 Acute kidney failure, unspecified; L97.912 Non-pressure chronic ulcer of unspecified part of right lower leg with fat layer exposed; L97.922 Non-pressure chronic ulcer of unspecified part of left lower leg with fat layer exposed; N39.0 Urinary tract infection, site not specified; I10 Essential (primary) hypertension; F03.90 Unspecified dementia, unspecified severity, without behavioral disturbance, psychotic disturbance, mood disturbance, and anxiety; E11.42 Type 2 diabetes mellitus with diabetic polyneuropathy; D64.9 Anemia, unspecified; I87.2 Venous insufficiency (chronic) (peripheral); E11.51 Type 2 diabetes mellitus with diabetic peripheral angiopathy without gangrene; E11.65 Type 2 diabetes mellitus with hyperglycemia; Z51.5 Encounter for palliative care; E86.0 Dehydration; R60.0 Localized edema; Z66 Do not resuscitate; B95.2 Enterococcus as the cause of diseases classified elsewhere; Z85.038 Personal history of other malignant neoplasm of large intestine; Z90.49 Acquired absence of other specified parts of digestive tract; Z79.82 Long term (current) use of aspirin; Z79.890 Hormone replacement therapy
CPT/HCPCS: 36415; 51702; 71045; 80048; 80053; 80202; 80307; 81001; 82962; 83036; 83605; 85025; 85610; 85730; 87040; 87077; 87086; 87088; 87186; 87633; 87635; 92526; 92610; 93005; 96360; 97110; 97116; 97162; 97166; 97530; 97535; 97803; 99285; G2023; J7030; J7040; J7050; A4216; U0004

== ENCOUNTER 2021-12-09 15:43 | Emergency (ER) | payer MEDICARE, MEDICAID, SELFPAY ==
[2021-12-09] VITALS (7 sets, daily range): BP systolic 84–119; BP diastolic 43–85; PULSE 110–123; RESP 19–30; TEMP 36.7; O2SAT 87–96; BMI 28.8
--- NOTE | 2021-12-09 16:00 | EDS_ITS ---
HPI History of Present Illness Chief Complaint: Shortness of Breath Narrative Narrative: History and physical is limited secondary to patient condition, his usual mental status is alert and oriented x1. He presents from long term facility as a DNR comfort care only. Last night he spiked a fever. They obtained a chest x-ray but the results have not come back. They are treating him for pneumonia. He has chronic discoloration of his lower extremities. They sent him in because of the continued respirations and assumption that he has pneumonia. He was started on Unasyn. [facility] Medical History (Updated 12/09/21 @ 20:12 by Cristóbal Martinez MD) Anxiety Asthma COPD (chronic obstructive pulmonary disease) Dementia Depression Diabetes GERD (gastroesophageal reflux disease) Hypertension Hypothyroidism Schizophrenia Seizures Sepsis Home Medications acetaminophen 325 mg PO Q4H PRN PRN 03/06/20 [History Last Taken Unknown] aspirin 81 mg PO DAILY 03/06/20 [History Last Taken Unknown] atorvastatin 40 mg PO DAILY 03/06/20 [History Last Taken Unknown] bumetanide 0.5 mg PO DAILY 03/06/20 [History Last Taken Unknown] cyanocobalamin (vitamin B-12) 2,000 mcg PO DAILY 03/06/20 [History Last Taken Unknown] lamotrigine 100 mg PO BID 03/06/20 [History Last Taken Unknown] levothyroxine 125 mcg PO DAILY 03/06/20 [History Last Taken Unknown] lisinopril 10 mg PO DAILY 03/06/20 [History Last Taken Unknown] lorazepam 1 mg PO BID 03/06/20 [History Last Taken Unknown] magnesium hydroxide 30 ml PO DAILY 03/06/20 [History Last Taken Unknown] metolazone 2.5 mg PO MOTH 03/06/20 [History Last Taken Unknown] metoprolol succinate 50 mg PO DAILY 03/06/20 [History Last Taken Unknown] prednisone 20 mg PO DAILY 03/06/20 [History Last Taken Unknown] risperidone microspheres 50 mg IM X1 03/06/20 [History Last Taken 03/04/20] sennosides 1 tab PO DAILY 03/06/20 [History Last Taken Unknown] trihexyphenidyl 2 mg PO BID 03/06/20 [History Last Taken Unknown] albuterol sulfate 0.63 mg INHALATION Q4H PRN 12/09/21 [History Last Taken Unknown] ceftriaxone 1 g IV Q12H 12/09/21 [History Last Taken Unknown] cilostazol 100 mg PO BID 12/09/21 [History Last Taken Unknown] diphenhydramine HCl [Benadryl] 25 mg PO BID 12/09/21 [History Last Taken Unknown] lisinopril 5 mg PO DAILY 12/09/21 [History Last Taken Unknown] lorazepam 2 mg PO BID PRN 12/09/21 [History Last Taken Unknown] Allergy/AdvReac Type Severity Reaction Status Date / Time egg Allergy PT UNABLE Verified 03/06/20 00:22 TO RESPOND-NEEDS F/U Social History Smoking Status: Unknown if ever smoked ROS ROS ED ROS Narrative Unable to obtain review of systems secondary to patient's mental status/condition Review of Systems ROS Unobtainable: due to mental status EXAM Physical Exam Narrative Exam Narrative: Afebrile. Vital signs noted. HEENT: Normocephalic. Atraumatic. PERRL, EOMI. Neck soft and supple. No point tenderness or step off. Cardiovascular: Positive tachycardia no murmurs, rubs, or gallops appreciated. Respiratory: Positive tachypnea. Lungs clear to auscultation bilaterally. Diminished sounds at bilateral bases Gastrointestinal: Abdomen soft, nontender, with normoactive bowel sounds. No rebound or guarding. Neurological: Intermittently awake. Nonfocal, nonlateralizing. Skin: No rash. Positive erythema bilateral lower extremities right greater than left. No pallor. Musculoskeletal: Mild bilateral pedal edema. Const Vital Signs: 12/09/21 15:44 12/09/21 15:51 12/09/21 15:54 Temperature 98.1 F 98.1 F Temperature Source Temporal Temporal Pulse Rate 116 H 116 H Respiratory Rate 28 H 28 H Respiratory Effort Short of Breath Labored Accessory Muscle Use Respiratory Depth Shallow Respiratory Pattern Tachypnea Blood Pressure 85/43 L 85/43 L Blood Pressure Mean 57 57 Pulse Ox 87 87 Oxygen Delivery Method Nasal Cannula Nasal Cannula Nasal Cannula Oxygen Flow Rate (L/min) 6 6 6 12/09/21 16:44 12/09/21 17:55 12/09/21 18:24 Temperature Temperature Source Pulse Rate 110 H 113 H 123 H Respiratory Rate 19 H 30 H 21 H Respiratory Effort Respiratory Depth Respiratory Pattern Blood Pressure 104/58 L 111/72 84/61 L Blood Pressure Mean 73 85 68 Pulse Ox 96 92 91 Oxygen Delivery Method Nasal Cannula Nasal Cannula Nasal Cannula Oxygen Flow Rate (L/min) 6 6 6 MDM MDM MDM Narrative Medical decision making narrative: Patient presents to the emergency department with a signed [facility] DO NOT RESUSCITATE Comfort Care order only status that is been in place. I did speak with his guardian, Terrance Mccoy who agrees with further treatment for assumed pneumonia and consult hospice. I will obtain a chest x-ray and basic laboratory work here as they have already been drawn. Chest x-ray shows increased interstitial markings which may represent edema versus infection. He does have an elevated white count of 16.5, hemoglobin low at 12.0. He appears mildly dehydrated with a sodium of 129 with a chloride of 95. Glucose 211 with an anion gap of 7. [facility] Initially, after they discussed it with his guardian, there was the possibility of his return to his facility, however they are they are unable to administer any morphine or Ativan for his comfort care. I then discussed the patient with the nurse practitioner on at [facility] for transfer to their facility. His DNR comfort care status will remain intact. Disposition is transfer in stable condition. Lab Data Attestation: I reviewed the patient's lab results. Labs: Laboratory Results - last 24 hr 12/09/21 12/09/21 16:10 16:10 WBC 16.5 H RBC 4.00 L Hgb 12.0 L Hct 36.0 L MCV 90.0 MCH 30.0 MCHC 33.3 RDW Std Deviation 44.5 H RDW Coeff of Kristie 13.4 Plt Count 154 MPV 11.5 Immature Gran % (Auto) 1.200 H Neut % (Auto) 92.7 H Lymph % (Auto) 2.6 L [place] % (Auto) 3.4 Eos % (Auto) 0.0 Baso % (Auto) 0.1 Absolute Neuts (auto) 15.3 H Absolute Lymphs (auto) 0.43 L Nucleated RBC % 0 Differential Comment SCANNED Sodium 129 L Potassium 4.1 Chloride 95 L Carbon Dioxide 27.0 Anion Gap 7 BUN 54 H Creatinine 2.97 H Estim Creat Clear Calc 23.21 Est GFR (MDRD) Af Amer 27 L Est GFR (MDRD) Non-Af 22 L BUN/Creatinine Ratio 18.2 Glucose 211 H Calcium 8.8 Radiography Diagnostic Testing: Clinical Impression(s) from Imaging Studies Chest X-Ray 12/09/21 16:30 IMPRESSION: Increased interstitial markings may represent edema and/or infection. Cardiomegaly with small left pleural effusion. Electronically Signed: Pelon Diehl MD at 17:39 EST , Discharge Plan Triage Chief Complaint: Shortness of Breath ED Provider: Cristóbal Martinez Dx/Rx/DC Orders Clinical Impression: Aspiration pneumonia, Do not resuscitate status, Need for comfort care Prescriptions: No Action metolazone 2.5 MG tablet 2.5 mg PO MOTH RF: 0 atorvastatin 40 MG tablet 40 mg PO DAILY RF: 0 sennosides 1 TABLET tablet 1 tab PO DAILY RF: 0 acetaminophen 325 MG tablet 325 mg PO Q4H PRN PRN (Reason: Fever) RF: 0 trihexyphenidyl 2 MG/5 ML elixir 2 mg PO BID RF: 0 metoprolol succinate 50 MG tablet extended release 24 hr 50 mg PO DAILY RF: 0 prednisone 20 MG tablet 20 mg PO DAILY RF: 0 magnesium hydroxide 400 MG/5 ML suspension 30 ml PO DAILY RF: 0 lorazepam 2 MG tablet 1 mg PO BID RF: 0 levothyroxine 125 MCG tablet 125 mcg PO DAILY RF: 0 bumetanide 0.5 MG tablet 0.5 mg PO DAILY RF: 0 lisinopril 10 MG tablet 10 mg PO DAILY RF: 0 aspirin 81 MG tablet,chewable 81 mg PO DAILY RF: 0 lamotrigine 100 MG tablet 100 mg PO BID RF: 0 risperidone microspheres 50 MG/2 ML suspension,extended rel recon 50 mg IM X1 RF: 0 cyanocobalamin (vitamin B-12) 2,500 MCG tablet 2,000 mcg PO DAILY RF: 0 cilostazol 100 mg Tablet 100 mg PO BID RF: 0 albuterol sulfate 0.63 mg/3 mL Solution For Nebulization 0.63 mg INHALATION Q4H PRN (Reason: sob) RF: 0 ceftriaxone 1 gram Recon Soln 1 g IV Q12H RF: 0 lorazepam 2 mg Tablet 2 mg PO BID PRN (Reason: Anxiety) RF: 0 diphenhydramine HCl [Benadryl] 25 mg Capsule 25 mg PO BID RF: 0 lisinopril 5 mg Tablet 5 mg PO DAILY RF: 0 Primary Care Provider: Pipo Moya Referrals: Pipo Moya MD [Primary Care Provider] - Disposition Disposition: Hospice in Medical Facility Discharge Location: [facility]
--- NOTE | 2021-12-09 16:30 | RAD_ITS ---
INDICATION: shortness of breath EXAMINATION/TECHNIQUE: X-RAY - XR Chest 1 View COMPARISON: 12/07/2019. FINDINGS: Increased interstitial markings. Tortuous and calcified thoracic aorta. The heart is mildly enlarged. Small left pleural effusion. No pneumothorax. Degenerative changes of the thoracic spine. RAD/Chest 1 View (Portable) IMPRESSION: Increased interstitial markings may represent edema and/or infection. Cardiomegaly with small left pleural effusion. Electronically Signed: Pelon Diehl MD at 17:39 EST ,
[2021-12-09 16:48] LABS: Absolute Lymphocyte Count 0.43 X10^3/uL (0.83-4.51); Absolute Neutrophil Count 15.3 X10^3/uL (2.0-7.7); Basophil# 0.01 X10^3/uL; Basophil% 0.1 % (0-1); Lymphocyte # 0.43 X10^3/ul (0.83-4.51); Lymphocyte % 2.6 % (19-41); Mean Corp Hgb Conc 33.3 g/dL (32-36); Mean Platelet Vol. 11.5 fl (6.2-12.0); Monocyte# 0.56 X10^3/uL; Monocyte% 3.4 % (0-10); NRBC Flagged by Analyzer 0 % (0-5); Neutrophil % 92.7 % (47-70); POSITIVE DIFFERENTIAL YES; Platelet Count 154 K/mm3 (150-450); RBC Distribution Width CV 13.4 % (11.6-14.6); RBC Distribution Width SD 44.5 fl (35.1-43.9); White Blood Count 16.5 K/mm3 (4.4-11.0)
[2021-12-09 16:49] LABS: Differential Indicated SCAN CRITERIA MET
[2021-12-09 17:09] LABS: Anion Gap 7 (5-15); BUN 54 mg/dL (7-18); BUN/Creat Ratio 18.2 RATIO (10-20); Calcium,Total 8.8 mg/dL (8.5-10.1); Chloride 95 mmol/L (98-107); Creatinine, Serum 2.97 mg/dL (0.70-1.30); EST Glomerular Filtration Rate 22 mL/min (>60); Est Glom Filt Rate - Afr Amer 27 mL/min (>60); Estimated Creatinine Clearance 23.21 ml/min; Glucose 211 mg/dL (74-106); Potassium 4.1 mmol/L (3.5-5.1); Sodium Level 129 mmol/L (136-145)
[2021-12-09 17:11] LABS: Differential Comment SCANNED
--- NOTE | 2021-12-09 18:06 | ED.RN ---
FAXED PAPER WORK OVER TO HOSPICE
== END 2021-12-09 20:59 | disposition hospice, inpatient (51) ==
PROVIDERS: Emergency Provider Emergency Medicine; PCP Family Medicine; Visit Provider Emergency Medicine
DX: J69.0 Pneumonitis due to inhalation of food and vomit (principal); F20.9 Schizophrenia, unspecified; F03.90 Unspecified dementia, unspecified severity, without behavioral disturbance, psychotic disturbance, mood disturbance, and anxiety; J44.9 Chronic obstructive pulmonary disease, unspecified; G40.909 Epilepsy, unspecified, not intractable, without status epilepticus; E11.9 Type 2 diabetes mellitus without complications; I10 Essential (primary) hypertension; Z86.19 Personal history of other infectious and parasitic diseases; Z79.899 Other long term (current) drug therapy; K21.9 Gastro-esophageal reflux disease without esophagitis; Z79.82 Long term (current) use of aspirin; E86.0 Dehydration; Z66 Do not resuscitate
CPT/HCPCS: 71045; 80048; 85025; 87426; 96365; 99285; A4216; J0295; J0696